=== PATIENT | male | born 1970 | race Caucasian/White ===

== ENCOUNTER → 2016-12-12 | Outpatient (CLI) | payer OTHER ==
[~2016-12-12] MED LIST: ALPR1TAB3 PO; CLON1TAB3 PO; FLUO40CA8 PO; LISI-725 PO; LSN20 PO; ZNT150 PO; ZNTT/150 PO
--- NOTE | 2016-12-12 09:12 | DIAGNOSTIC IMAGING REPORT ---
CHEST 2 VIEWS ROUTINE HISTORY: 46 years-old Male acute chest pain with anterior right-sided rib pain. COMPARISON: Chest radiograph 05/02/2014 TECHNIQUE: Frontal and lateral views of the chest FINDINGS: Cardiac silhouette is again upper limits of normal, unchanged. Mediastinal contours are within normal limits. There is no pneumothorax, pleural effusion or focal airspace consolidation. There is mild right hemidiaphragmatic elevation. Partial image fusion hardware of the lower cervical spine is noted with surgical clips near the right lung apex. The bones appear to be grossly intact. No acute displaced rib fracture is identified. There is mild convex left curvature of the lower thoracic spine. IMPRESSION: 1. No acute cardiopulmonary process. 2. No displaced rib fracture identified. The above report was generated using voice recognition software. It may contain grammatical, syntax or spelling errors. Electronically signed by: Sherif Serna M.D. 12/12/2016 9:11 AM Dictated Date/Time: 12/12/2016 9:09 AM
== END | disposition home or self-care (01) ==
LOC: C.RADBC 08:57
PROVIDERS: ATTEND Physician Assistant Medical
DX: R07.1 Chest pain on breathing (principal)

== ENCOUNTER 2020-09-19 00:03 | Observation (INO) ==
[2020-09-19] MEDS ORDERED: MoRPHine SULFATE 4 MG/ML 1 ML CARP\\VIAL IV STA (00:13)
[2020-09-19] MEDS ORDERED: SODIUM CHLORIDE 0.9% 1000ML 1,000 ML IV STA (00:13)
[2020-09-19] MEDS ORDERED: KETOROLAC TROMETHAMINE 15 MG/ML VIAL IV STA (00:13)
--- NOTE | 2020-09-19 00:32 | Emergency Department Note ---
History of Present Illness General Chief complaint: Flank Pain Stated complaint: PAIN AFTER KIDNEY SURGERY Time Seen by Provider: 09/19/20 00:12 History of Present Illness Maximum Pain Intensity: 10 This 50 yo presents to the ER complaining of flank pain who had lithotripsy done yesterday by Dr. Henao Location: Flank Quality: Severe Severity: Severe Duration: Today Timing: Started after lithotripsy Context: Pain got worse and patient came in Modifying factors: better with oxycodone; worse with activity Patient states he tried the oxycodone with minimal relief of symptoms. Patient complains of urinary symptoms. Patient denies chest pain, fever, chills, flulike illness. Home Medications Medication Instructions Recorded Confirmed Type clonazepam [Klonopin] 1 mg PO QAM 11/24/19 09/19/20 History fluoxetine [Prozac] 80 mg PO QAM 11/24/19 09/19/20 History albuterol sulfate 2 puff INHALATION Q4H PRN 05/16/20 09/19/20 History lisinopril 30 mg PO QAM 05/16/20 09/19/20 History oxycodone-acetaminophen 1 tab PO Q6H PRN #20 tab 09/18/20 09/19/20 Rx tamsulosin 0.4 mg PO DAILY #30 cap 09/18/20 09/19/20 Rx Allergies Allergy/AdvReac Type Severity Reaction Status Date / Time No Known Allergies Allergy Unknown Verified 09/18/20 07:28 Past Med/Surg History Medical History Anxiety Depression Diverticular disease Hearing deficit History of COVID-19 04/24/20 @ [facility]--fever, fatigue, loss of taste/smell, body aches--no issues now Hypercholesterolemia no meds Hypertension Kidney stones Obesity Osteoarthritis Sleep apnea cpap Surgical History History of anesthesia reaction difficulty voiding after a knee sx History of arthroscopy of right knee History of bilateral inguinal hernia repair History of colonoscopy History of elbow surgery right elbow tendon repair History of endoscopic sinus surgery History of fusion of cervical spine normal ROM History of lithotripsy History of open reduction and internal fixation (ORIF) procedure right ring finger---hardware removed History of umbilical hernia repair Status post medial meniscal repair right knee Family History Grandfather (Paternal) Family history of diabetes mellitus Cancer Grandmother (Paternal) Family history of diabetes mellitus Cerebral artery occlusion Uncle Cancer Father Hyperlipidemia Other No family history of adverse response to anesthesia Social History Smoking Status: Never smoker Tobacco Type: Smokeless Tobacco (Dip or Chew) Second Hand Exposure: No; Hx Alcohol Use: Yes Alcohol type: beer, wine and hard liquor Hx Substance Use: No Preferred Language: [place] Communication Ability: Effective Cardiovascular Lab Director Required: No Beliefs That Will Affect Care: None Current Living Situation: Spouse and Family Current Living Situation Comment: Lives with and 2 kids Feels Safe at Home: Yes Assistive Devices: CPAP Review of Systems A total of 10 systems reviewed and were otherwise negative Physical Exam Vital Signs Vital Signs - 24 hr 09/19/20 00:08 09/19/20 01:00 09/19/20 01:39 Temperature 37.2 C Temperature Source Temporal Artery Scan Pulse Rate 91 H 80 Pulse Rate [Apical] 80 80 Pulse Rhythm Regular Pulse Rhythm [Apical] Regular Regular Pulse Strength [Apical] Normal Normal Respiratory Rate 18 18 18 Respiratory Effort / Characteristics Non-Labored Non-Labored Respiratory Depth Normal Normal Respiratory Pattern Regular Regular Blood Pressure 178/82 H Blood Pressure [Right Arm] 173/89 H 163/96 H Blood Pressure Mean 114 Blood Pressure Mean [Right Arm] 117 118 Blood Pressure Position Sitting Blood Pressure Position [Right Arm] Sitting Lying Pulse Oximetry 93 98 95 Oxygen Delivery Method Room Air Room Air Room Air Sepsis Recent Fever Within 48 Hours No Sepsis New/Unexplained Change in Mental Status No Sepsis Action Taken by Nursing No Action Required VITALS: Vitals are noted on the nurse's note and reviewed by myself. Vital signs stable. GENERAL: Pleasant male who appears in pain, in no acute distress, n ondiaphoretic, well-developed well-nourished. SKIN: Capillary reflex less than 2 seconds. HEENT: Normocephalic. PERRLA. EOMI. Nares patent. Mucous membranes moist. Neck is supple without nuchal rigidity. HEART: Regular rate and rhythm LUNGS: Clear to auscultation bilaterally without wheezes, rales or rhonchi. No retractions or accessory muscle use. ABDOMEN: Positive bowel sounds x 4. Normal tympanic percussion. Soft, nontender, without masses or organomegaly. Kay sign negative. No guarding or rebound tenderness. Left CVA tenderness MUSCULOSKELETAL: No gross musculoskeletal defects. NEURO: Patient was alert and oriented to person place and time. No focal neurological deficits. Course Administered Medications Discontinued Medications Famotidine (Famotidine 20mg/5ml Iv Push) 20 mg IV ONE STA Stop: 09/19/20 00:38 Last Admin: 09/19/20 00:45 Dose: 20 mg Documented by: [id number] Sodium Chloride (Nss 1000ml) 1,000 mls @ 999 mls/hr IV .Q1H1M STA Stop: 09/19/20 01:13 Last Infusion: 09/19/20 01:37 Dose: 0 mls/hr Documented by: [id number] Admin: 09/19/20 00:45 Dose: 999 mls/hr Documented by: [id number] Promethazine HCl 25 mg/ Sodium (Chloride) 51 mls @ 204 mls/hr IV NOW STA Stop: 09/19/20 00:51 Last Admin: 09/19/20 00:59 Dose: Not Given Documented by: [id number] Acetaminophen (Ofirmev) 1,000 mg in 100 mls @ 400 mls/hr IV NOW STA Stop: 09/19/20 02:01 Last Infusion: 09/19/20 02:49 Dose: 0 mls/hr Documented by: [id number] Admin: 09/19/20 01:52 Dose: 400 mls/hr Documented by: [id number] Ketorolac Tromethamine (Ketorolac Tromethamine 15 Mg/Ml Vial) 10 mg IV NOW STA Stop: 09/19/20 00:14 Last Admin: 09/19/20 00:44 Dose: 10 mg Documented by: [id number] Morphine Sulfate (Morphine Sulfate 4 Mg/Ml 1 Ml Carp\Vial) 4 mg IV NOW STA Stop: 09/19/20 00:14 Last Admin: 09/19/20 00:45 Dose: 4 mg Documented by: [id number] Promethazine HCl (Promethazine 25 Mg/51 Ml Nss) Confirm Administered Dose 25 mg IV .STK-MED ONE Stop: 09/19/20 00:42 Last Admin: 09/19/20 00:45 Dose: 25 mg Documented by: [id number] Medical Decision Making Medical Records Attestation: I reviewed the patient's medical records. Home Medications Current Medication List: was personally reviewed by me Laboratory Data Attestation: I reviewed the patient's lab results. Result diagrams: 09/19/20 00:35 09/19/20 00:35 Lab Results 09/19/20 09/19/20 09/19/20 Range/Units 00:35 00:35 01:53 WBC 12.24 H (4.8-10.8) K/uL RBC 4.70 (4.7-6.1) M/uL Hgb 14.2 (14.0-18.0) g/dL Hct 40.3 L (42-52) % MCV 85.7 (80-100) fL MCH 30.2 (25-34) pg MCHC 35.2 (32-36) g/dL RDW Std Deviation 38.6 (36.4-46.3) fL RDW Coeff of Tushar 12.3 (11.5-14.5) % Plt Count 273 (130-400) K/uL MPV 8.7 (7.4-10.4) fL Immature Gran % (Auto) 0.8 % Neut % (Auto) 83.1 % Lymph % (Auto) 10.8 % [place] % (Auto) 5.2 % Eos % (Auto) 0.0 % Baso % (Auto) 0.1 % Neut # (Auto) 10.17 H (1.4-6.5) K/uL Lymph # (Auto) 1.32 (1.2-3.4) K/uL [place] # (Auto) 0.64 H (0.11-0.59) K/uL Eos # (Auto) 0.00 (0-0.5) K/uL Baso # (Auto) 0.01 (0-0.2) K/uL Immature Gran # (Auto) 0.10 H (0.00-0.02) K/uL Sodium 137 (136-145) mmol/L Potassium 3.8 (3.5-5.1) mmol/L Chloride 104 (98-107) mmol/L Carbon Dioxide 31 (21-32) mmol/L Anion Gap 2.0 L (3-11) BUN 14 (7-18) mg/dl Creatinine 0.95 (0.6-1.4) mg/dl Est Cr Clr Drug Dosing 134.4 ml/min Est GFR ( Amer) 106.2 ml/min Est GFR (Non-Af Amer) 91.7 ml/min BUN/Creatinine Ratio 14.9 (10-20) Glucose 179 H (70-99) mg/dl Calcium 8.7 (8.5-10.1) mg/dl Total Bilirubin 0.5 (0.2-1) mg/dl AST 35 (15-37) U/L ALT 115 H (12-78) U/L Alkaline Phosphatase 75 (45-117) U/L Total Protein 7.7 (6.4-8.2) gm/dl Albumin 3.7 (3.4-5.0) gm/dl Globulin 4.0 (2.5-4.0) gm/dl Albumin/Globulin Ratio 0.9 (0.9-2) Urine Color [place] Urine Appearance Cloudy A (Clear) Urine pH 5.0 (4.5-7.5) Ur Specific [place] 1.025 (1.000-1.030) Urine Protein 2+ H (Negative) Urine Glucose (UA) 1+ H (Negative) Urine Ketones Trace H (Negative) Urine Blood 3+ H (Negative) Urine Nitrite Negative (Negative) Urine Bilirubin Negative (Negative) Urine Urobilinogen Negative (Negative) Ur Leukocyte Esterase 1+ H (Negative) Urine WBC (Auto) 10-30 H (0-5) /hpf Urine RBC (Auto) >30 H (0-4) /hpf U Hyaline Cast (Auto) 5-10 H (0-5) /lpf U Epithel Cells (Auto) 10-20 H (0-5) /lpf Urine Bacteria (Auto) Negative (Negative) Urine Yeast Not Reportable COVID-19 Eval Order 09/19/20 Range/Units 02:37 WBC (4.8-10.8) K/uL RBC (4.7-6.1) M/uL Hgb (14.0-18.0) g/dL Hct (42-52) % MCV (80-100) fL MCH (25-34) pg MCHC (32-36) g/dL RDW Std Deviation (36.4-46.3) fL RDW Coeff of Tushar (11.5-14.5) % Plt Count (130-400) K/uL MPV (7.4-10.4) fL Immature Gran % (Auto) % Neut % (Auto) % Lymph % (Auto) % [place] % (Auto) % Eos % (Auto) % Baso % (Auto) % Neut # (Auto) (1.4-6.5) K/uL Lymph # (Auto) (1.2-3.4) K/uL [place] # (Auto) (0.11-0.59) K/uL Eos # (Auto) (0-0.5) K/uL Baso # (Auto) (0-0.2) K/uL Immature Gran # (Auto) (0.00-0.02) K/uL Sodium (136-145) mmol/L Potassium (3.5-5.1) mmol/L Chloride (98-107) mmol/L Carbon Dioxide (21-32) mmol/L Anion Gap (3-11) BUN (7-18) mg/dl Creatinine (0.6-1.4) mg/dl Est Cr Clr Drug Dosing ml/min Est GFR ( Amer) ml/min Est GFR (Non-Af Amer) ml/min BUN/Creatinine Ratio (10-20) Glucose (70-99) mg/dl Calcium (8.5-10.1) mg/dl Total Bilirubin (0.2-1) mg/dl AST (15-37) U/L ALT (12-78) U/L Alkaline Phosphatase (45-117) U/L Total Protein (6.4-8.2) gm/dl Albumin (3.4-5.0) gm/dl Globulin (2.5-4.0) gm/dl Albumin/Globulin Ratio (0.9-2) Urine Color Urine Appearance (Clear) Urine pH (4.5-7.5) Ur Specific [place] (1.000-1.030) Urine Protein (Negative) Urine Glucose (UA) (Negative) Urine Ketones (Negative) Urine Blood (Negative) Urine Nitrite (Negative) Urine Bilirubin (Negative) Urine Urobilinogen (Negative) Ur Leukocyte Esterase (Negative) Urine WBC (Auto) (0-5) /hpf Urine RBC (Auto) (0-4) /hpf U Hyaline Cast (Auto) (0-5) /lpf U Epithel Cells (Auto) (0-5) /lpf Urine Bacteria (Auto) (Negative) Urine Yeast COVID-19 Eval Order Covid19 at [facility] Imaging Data Attestation: I personally reviewed and interpreted this imaging study as follows: MDM Narrative Prior records/ancillary studies reviewed. Triage Nursing notes reviewed. Additional history obtained from nursing The patient's history was concerning for flank pain. Differential diagnosis: Etiologies such as renal colic, appendicitis, diverticulitis, mesenteric ischemia, aortic pathology, infections, inflammatory bowel disease, PUD, biliary pathology, UTI, as well as others were entertained. Physical examination findings: As above. ER treatment provided: Toradol, morphine, IV fluids, Flomax, Tylenol On reassessment the patient felt better. Diagnostic interpretation by me: The labs revealed mild leukocytosis. Urinalysis revealed hematuria. There was no sign of UTI. Imaging studies: CT ABDOMEN & PELVIS Without Contrast: Comparison made to CT abdomen pelvis without contrast 09/08/2020 Interval fragmentation of a stone within the inferior renal pelvis of the left kidney, compatible with history of lithotripsy. No hydronephrosis. Stable punctate nonobstructing right renal calculus. No obstructing ureteral stone. No acute findings in the abdomen or pelvis. Multiple incidental findings are grossly stable compared to the previous exam. Radiologist: Nancy Johnston M.D. Consultation: A consultation was placed with the hospitalist. The case was discussed and diagnostics were reviewed. The patient was evaluated in the ER for further treatment. It appears that the patient has isolated renal colic from a left sided stone. Patient still moderate amount of pain. He is requesting admission. Medicine was consulted. By the evaluation outlined above emergent etiologies such as appendicitis, diverticulitis, mesenteric ischemia, aortic pathology, inflammatory bowel disease, PUD, biliary pathology, as well as others were deemed relatively unlikely. The pt informed about the findings as listed above. All questions were answered and pleased with the treatment. The chart was completed utilizing [employer] voice recognition software. Grammatical errors, random word insertions, pronoun errors, and incomplete sentences are an occassional consequence of this system due to software limitations, ambient noise, and hardware issues. Any formal questions or concerns about the content, text, or information contained within the body of this dictation should be directly addressed to the physician assistant cross country coach for clarification. Impression & Plan Left renal stone, Intractable back pain Discharge Plan Visit Data Chief Complaint: Flank Pain Stated Complaint: PAIN AFTER KIDNEY SURGERY ED Provider: Toney Cheng ED Midlevel Provider: Radha Wright Discharge Problem: Left renal stone, Intractable back pain Patient Disposition: Being Evaluated by Hospitalist Condition: Good Forms Stand Alone Forms: My [employer] Prescriptions Prescriptions: No Action lisinopril 30 mg tablet 30 mg PO QAM RF: 0 albuterol sulfate 90 mcg/actuation HFA aerosol inhaler 2 puff INHALATION Q4H PRN (Reason: Shortness Of Breath Or Wheezing) RF: 0 fluoxetine [Prozac] 40 mg capsule 80 mg PO QAM RF: 0 clonazepam [Klonopin] 1 mg tablet 1 mg PO QAM RF: 0 oxycodone-acetaminophen 7.5-325 mg tablet 1 tab PO Q6H PRN (Reason: pain) Qty: 20 RF: 0 tamsulosin 0.4 mg capsule 0.4 mg PO DAILY Qty: 30 RF: 0 Referrals Referrals: Jackie Nunez CRNP [Primary Care Provider] -
[2020-09-19] MEDS ORDERED: FAMOTIDINE 20MG/5ML IV PUSH IV STA (00:37)
[2020-09-19] MEDS ORDERED: PROMETHAZINE HCL 25 MG in SODIUM CHLORIDE 0.9% 50 ML IV STA (00:37)
[2020-09-19] MEDS ORDERED: PROMETHAZINE 25 MG/51 ML NSS IV ONE (00:41)
[2020-09-19 00:47] LABS: Basophils # (auto) 0.01 K/uL (0-0.2); Basophils % (auto) 0.1 %; Hematocrit (blood only) 40.3 % (42-52); Hemoglobin 14.2 g/dL (14.0-18.0); Immature Granulocytes % (auto) 0.8 %; Lymphocytes # (auto) 1.32 K/uL (1.2-3.4); Lymphocytes % (auto) 10.8 %; Mean Corpuscular Hemoglobin 30.2 pg (25-34); Mean Corpuscular Hgb Conc 35.2 g/dL (32-36); Mean Corpuscular Volume 85.7 fL (80-100); Mean Platelet Volume 8.7 fL (7.4-10.4); Monocytes # (auto) 0.64 K/uL (0.11-0.59); Monocytes % (auto) 5.2 %; Neutrophils # (auto) 10.17 K/uL (1.4-6.5); Neutrophils % (auto) 83.1 %; Platelet Count 273 K/uL (130-400); RDW Coefficient of Variation 12.3 % (11.5-14.5); RDW Standard Deviation 38.6 fL (36.4-46.3); White Blood Count 12.24 K/uL (4.8-10.8)
[2020-09-19 01:07] LABS: Albumin Level 3.7 gm/dl (3.4-5.0); BUN Creatinine Ratio 14.9 (10-20); Calcium 8.7 mg/dl (8.5-10.1); Creatinine Clr Calc Pharmacy 134.4 ml/min; Est GFR (African American) 106.2 ml/min; Est GFR (Non-African American) 91.7 ml/min; Potassium 3.8 mmol/L (3.5-5.1)
[2020-09-19 01:08] LABS: Albumin Globulin Ratio 0.9 (0.9-2); Bilirubin,Total 0.5 mg/dl (0.2-1); Total Protein 7.7 gm/dl (6.4-8.2)
[2020-09-19] MEDS ORDERED: ACETAMINOPHEN 1,000 MG/100 ML VIAL IV STA (01:47)
[2020-09-19 02:05] LABS: Appearance Urine Cloudy (Clear); Bacteria Urine Automated Negative (Negative); Bilirubin Urine Negative (Negative); Blood Urine 3+ (Negative); Color Urine Orange; Glucose Urine UA 1+ (Negative); Ketones Urine Trace (Negative); Leukocyte Esterase Urine 1+ (Negative); Nitrite Urine Negative (Negative); Protein Urine 2+ (Negative); Specific Gravity Urine 1.025 (1.000-1.030); Urobilinogen Urine Negative (Negative)
[2020-09-19] MEDS ORDERED: TAMSULOSIN HCL 0.4 MG CAP PO ONE (02:22)
[2020-09-19 02:32] LABS: RBC Urine Automated >30 /hpf (0-4)
--- NOTE | 2020-09-19 04:51 | History & Physical Report ---
Date of Service September 19, 2020 Assessment & Plan (1) Left renal stone: Left renal stone/status post lithotripsy earlier in the day- Intractable back pain Admit for pain control N.p.o. except meds Tamsulosin 0.4 mg p.o. daily NSS + KCl 20 mEq at 100 mils per hour Follow urine culture and sensitivity Ceftriaxone 2 g IV daily Zofran 4 mg IV every 6 hours as needed Famotidine 20 mg IV every 12 hours Dilaudid 0.25 mg IV every 3 hours as needed moderate pain Dilaudid 0.5 mg IV every 3 hours as needed severe pain Consult urology Present on Admission?: Yes (2) History of lithotripsy: See above Present on Admission?: Yes (3) Intractable back pain: See above Present on Admission?: Yes (4) Hypertension: Hold lisinopril Present on Admission?: Yes (5) Generalized anxiety disorder: Generalized anxiety disorder/depression- continue clonazepam and fluoxetine Present on Admission?: Yes (6) Depressive disorder: See above Present on Admission?: Yes History of Present Illness Chief Complaint: Patient presents to the emergency department with severe left- sided flank pain, that occurred after lithotripsy earlier in the day, unrelieved by pain medications Primary Care Provider: SAUNDRA Avelar The patient is a 50-year-old male with a past medical history including left renal stone, obesity, umbilical hernia, tobacco use disorder, cervical spine stenosis, panic disorder without agoraphobia, metabolic syndrome, long QT syndrome, generalized anxiety disorder, GERD, dyslipidemia, hypertension, morbid obesity and hypercholesterolemia. Patient underwent lithotripsy earlier in the day for left renal stone, and presented to the emergency department as instructed, if pain became intolerable post procedure. Allergies Allergy/AdvReac Type Severity Reaction Status Date / Time No Known Allergies Allergy Unknown Verified 09/18/20 07:28 Home Medications Medication Instructions Recorded Confirmed Type clonazepam [Klonopin] 1 mg PO QAM 11/24/19 09/19/20 History fluoxetine [Prozac] 80 mg PO QAM 11/24/19 09/19/20 History albuterol sulfate 2 puff INHALATION Q4H PRN 05/16/20 09/19/20 History lisinopril 30 mg PO QAM 05/16/20 09/19/20 History oxycodone-acetaminophen 1 tab PO Q6H PRN #20 tab 09/18/20 09/19/20 Rx tamsulosin 0.4 mg PO DAILY #30 cap 09/18/20 09/19/20 Rx Past Med/Surg History Medical History Anxiety Depression Diverticular disease Hearing deficit History of COVID-19 04/24/20 @ [facility]--fever, fatigue, loss of taste/smell, body aches--no issues now Hypercholesterolemia no meds Hypertension Kidney stones Obesity Osteoarthritis Sleep apnea cpap Surgical History History of anesthesia reaction difficulty voiding after a knee sx History of arthroscopy of right knee History of bilateral inguinal hernia repair History of colonoscopy History of elbow surgery right elbow tendon repair History of endoscopic sinus surgery History of fusion of cervical spine normal ROM History of lithotripsy History of open reduction and internal fixation (ORIF) procedure right ring finger---hardware removed History of umbilical hernia repair Status post medial meniscal repair right knee Family History Grandfather (Paternal) Family history of diabetes mellitus Cancer Grandmother (Paternal) Family history of diabetes mellitus Cerebral artery occlusion Uncle Cancer Father Hyperlipidemia Other No family history of adverse response to anesthesia Social History Smoking Status: Never smoker Tobacco Type: Smokeless Tobacco (Dip or Chew) Second Hand Exposure: No; Hx Alcohol Use: Yes Alcohol type: beer, wine and hard liquor Hx Substance Use: No Preferred Language: Bahraini Communication Ability: Effective Saw Man Required: No Beliefs That Will Affect Care: None Current Living Situation: Spouse and Family Current Living Situation Comment: Lives with and 2 kids Feels Safe at Home: Yes Assistive Devices: CPAP Review of Systems Review of Systems: The patient denies chest pain, palpitations, shortness of breath, dyspnea on exertion, cough, lower extremity swelling, sore throat, chills, sweats, weight change, fatigue, nausea, vomiting, diarrhea , constipation, pelvic pain, blood in urine or stool, dysuria, urinary frequency or urgency, lightheadedness, dizziness, headache, memory loss, loss of consciousness, rash, abnormal bruising or bleeding, imbalance, focal or generalized weakness, numbness or tingling in arms or legs, generalized arthralgias or myalgias, neck pain, or night sweats. The review of systems is otherwise negative other than for that already noted above, and at least 10 systems have been reviewed. Physical Exam Physical Exam: The patient is awake, alert and oriented 3, well developed and well nourished, normocephalic and atraumatic, lying in bed and in no acute distress. HEENT--PERRL, EOMI, mucous membranes and oropharynx normal. Neck--supple. No JVD. No bruits. Thyroid normal, trachea midline, no adenopathy. Heart--normal S1 and S2. No murmurs, rubs or gallops. Lungs--clear bilaterally, no respiratory distress, no accessory muscle use. Abdomen--normal bowel sounds and soft. Nontender. Nondistended. Morbidly obese Extremities--no cyanosis or clubbing. No edema. Dermatologic--normal skin turgor, normal color, no abnormal lymph nodes, no rash. Neurologic--cranial nerves II through XII grossly intact. Rheumatologic--normal range of motion. Psychiatric--normal affect. Results & Data Results & Data ([facility]) Vital Signs (Past 12 Hours) Vital Signs Temp Pulse Pulse Resp BP BP Pulse Ox 09/19/20 03:34 72 20 168/109 H 94 09/19/20 01:39 80 18 163/96 H 95 09/19/20 01:00 80 80 18 173/89 H 98 09/19/20 00:08 99.0 F 91 H 18 178/82 H 93 Laboratory Results Laboratory Results WBC 12.24 K/uL (4.8-10.8) H 09/19/20 00:35 RBC 4.70 M/uL (4.7-6.1) 09/19/20 00:35 Hgb 14.2 g/dL (14.0-18.0) 09/19/20 00:35 Hct 40.3 % (42-52) L 09/19/20 00:35 MCV 85.7 fL (80-100) 09/19/20 00:35 MCH 30.2 pg (25-34) 09/19/20 00:35 MCHC 35.2 g/dL (32-36) 09/19/20 00:35 RDW Std Deviation 38.6 fL (36.4-46.3) 09/19/20 00:35 RDW Coeff of Tushar 12.3 % (11.5-14.5) 09/19/20 00:35 Plt Count 273 K/uL (130-400) 09/19/20 00:35 MPV 8.7 fL (7.4-10.4) 09/19/20 00:35 Immature Gran % (Auto) 0.8 % 09/19/20 00:35 Neut % (Auto) 83.1 % 09/19/20 00:35 Lymph % (Auto) 10.8 % 09/19/20 00:35 [place] % (Auto) 5.2 % 09/19/20 00:35 Eos % (Auto) 0.0 % 09/19/20 00:35 Baso % (Auto) 0.1 % 09/19/20 00:35 Neut # (Auto) 10.17 K/uL (1.4-6.5) H 09/19/20 00:35 Lymph # (Auto) 1.32 K/uL (1.2-3.4) 09/19/20 00:35 [place] # (Auto) 0.64 K/uL (0.11-0.59) H 09/19/20 00:35 Eos # (Auto) 0.00 K/uL (0-0.5) 09/19/20 00:35 Baso # (Auto) 0.01 K/uL (0-0.2) 09/19/20 00:35 Immature Gran # (Auto) 0.10 K/uL (0.00-0.02) H 09/19/20 00:35 Sodium 137 mmol/L (136-145) 09/19/20 00:35 Potassium 3.8 mmol/L (3.5-5.1) 09/19/20 00:35 Chloride 104 mmol/L (98-107) 09/19/20 00:35 Carbon Dioxide 31 mmol/L (21-32) 09/19/20 00:35 Anion Gap 2.0 (3-11) L 09/19/20 00:35 BUN 14 mg/dl (7-18) 09/19/20 00:35 Creatinine 0.95 mg/dl (0.6-1.4) 09/19/20 00:35 Est Cr Clr Drug Dosing 134.4 ml/min 09/19/20 00:35 Est GFR ( Amer) 106.2 ml/min 09/19/20 00:35 Est GFR (Non-Af Amer) 91.7 ml/min 09/19/20 00:35 BUN/Creatinine Ratio 14.9 (10-20) 09/19/20 00:35 Glucose 179 mg/dl (70-99) H 09/19/20 00:35 Calcium 8.7 mg/dl (8.5-10.1) 09/19/20 00:35 Total Bilirubin 0.5 mg/dl (0.2-1) 09/19/20 00:35 AST 35 U/L (15-37) 09/19/20 00:35 ALT 115 U/L (12-78) H 09/19/20 00:35 Alkaline Phosphatase 75 U/L (45-117) 09/19/20 00:35 Total Protein 7.7 gm/dl (6.4-8.2) 09/19/20 00:35 Albumin 3.7 gm/dl (3.4-5.0) 09/19/20 00:35 Globulin 4.0 gm/dl (2.5-4.0) 09/19/20 00:35 Albumin/Globulin Ratio 0.9 (0.9-2) 09/19/20 00:35 Urine Color Martin 09/19/20 01:53 Urine Appearance Cloudy (Clear) A 09/19/20 01:53 Urine pH 5.0 (4.5-7.5) 09/19/20 01:53 Ur Specific [place] 1.025 (1.000-1.030) 09/19/20 01:53 Urine Protein 2+ (Negative) H 09/19/20 01:53 Urine Glucose (UA) 1+ (Negative) H 09/19/20 01:53 Urine Ketones Trace (Negative) H 09/19/20 01:53 Urine Blood 3+ (Negative) H 09/19/20 01:53 Urine Nitrite Negative (Negative) 09/19/20 01:53 Urine Bilirubin Negative (Negative) 09/19/20 01:53 Urine Urobilinogen Negative (Negative) 09/19/20 01:53 Ur Leukocyte Esterase 1+ (Negative) H 09/19/20 01:53 Urine WBC (Auto) 10-30 /hpf (0-5) H 09/19/20 01:53 Urine RBC (Auto) >30 /hpf (0-4) H 09/19/20 01:53 U Hyaline Cast (Auto) 5-10 /lpf (0-5) H 09/19/20 01:53 U Epithel Cells (Auto) 10-20 /lpf (0-5) H 09/19/20 01:53 Urine Bacteria (Auto) Negative (Negative) 09/19/20 01:53 Urine Yeast Not Reportable 09/19/20 01:53 COVID-19 Eval Order Covid19 at [facility] [place] 09/19/20 02:37 SARS-CoV-2 (PCR) NEGATIVE (Negative) 09/19/20 02:37 Diagnostic Findings [facility] Patient: UNA KRAMER (Male) : 66 Status: ER Date: 09/19/20 01:15 Room #: History: LEFT flank pain, lithotripsy today Slices: [phone] Priors: Tech: Panchito Lubin @ [id number] Exams: CT ABDOMEN & PELVIS Without Contrast Contrast: Accession Numbers: [id number] Preliminary Findings Only See Final Report For Complete Findings CT ABDOMEN & PELVIS Without Contrast: Comparison made to CT abdomen pelvis without contrast 09/08/2020 Interval fragmentation of a stone within the inferior renal pelvis of the left kidney, compatible with history of lithotripsy. No hydronephrosis. Stable punctate nonobstructing right renal calculus. No obstructing ureteral stone. No acute findings in the abdomen or pelvis. Multiple incidental findings are grossly stable compared to the previous exam. Radiologist: Nnacy Johnston M.D. Study ready at 01:19 and initial results transmitted at 01:51 *This report constitutes a preliminary interpretation only. Non-acute findings felt to be unrelated to the clinical presentation may not be discussed in this report. The study will be interpreted and a final report will be generated by the local Radiologist the following shift. To reach the hospital radiology department call [phone]. If a discrepancy is found between the preliminary and final interpretations of this study, please notify us via our Client Portal at [email or web address] under QA [email or web address].You can also fax this report with a description of the discrepancy, or include the final report, to our daytime fax number [phone].If faxing, please indicate the severity of discrepancy using one of the following categories: [ ] 1 - Agree/Informational [ ] 2 - Unlikely to Affect Management [ ] 3 - Possible Eventual Change of Management [ ] 4 - Probable Immediate Change of Management For all other patient related information, please fax us at [phone]. [id number] Code Status & VTE Plan Code Status Full code VTE Prophylaxis Plan VTE Prophylaxis will be ordered: Yes PG Care Time/CCT Total # of Minutes Spent Total Time Spent with Patient: Total time spent is greater than 50% in coordination of care (as documented) at patient's floor/unit and/or counseling patient: Coding Level of Care Code 90542 OBS Care - Level 3 Diagnoses Left renal stone N20.0 History of lithotripsy Z98.890 Intractable back pain M54.9 Hypertension I10 Generalized anxiety disorder F41.1 Depressive disorder F32.9
[2020-09-19] MEDS: HYDROmorphone INJ 0.5 MG/0.5 ML SYR IV PRN ×3 (05:15→12:25)
[2020-09-19] MEDS ORDERED: GLUCOSE 10 TABS/TUBE PO PRN (05:26)
[2020-09-19] MEDS ORDERED: DEXTROSE 50% 50 ML SYRINGE IV PRN (05:26)
[2020-09-19] MEDS ORDERED: GLUCOSE 40% GEL 15 GM TUBE PO PRN (05:26)
[2020-09-19] MEDS ORDERED: oxyCODONE/APAP 7.5/325MG TAB PO PRN (05:26)
[2020-09-19] MEDS ORDERED: ONDANSETRON INJ 2 MG/ML 2 ML VIAL IV PRN (05:26)
[2020-09-19] MEDS ORDERED: CARBOHYDRATES FOR HYPOGLYCEMIA PO PRN (05:26)
[2020-09-19] MEDS ORDERED: GLUCAGON FOR INJ 1 MG VIAL SQ PRN (05:26)
[2020-09-19] MEDS ORDERED: cefTRIAXone SODIUM 2,000 MG in DEXTROSE 5% 50 ML IV SCH (06:00)
[2020-09-19] MEDS ORDERED: Nursing to Pharmacy Communication SCH (07:00)
[2020-09-19] MEDS: INSULIN ASPART 100 UNITS/ML 3 ML PEN SC SCH ×2 (07:04→12:07)
[2020-09-19] MEDS ORDERED: INSULIN ASPART 100 UNITS/ML 3 ML PEN SC SCH (07:30)
--- NOTE | 2020-09-19 08:19 | CT Scan Report ---
CT OF THE ABDOMEN AND PELVIS WITHOUT CONTRAST CLINICAL HISTORY: flank pain, lithotripsy today COMPARISON STUDY: CT of the abdomen and pelvis September 08, 2020. KUB September 18, 2020. TECHNIQUE: Axial images of the abdomen and pelvis were obtained without IV contrast. Images were revi ewed in the axial, sagittal, and coronal planes. Automated exposure control was utilized for the arabella dy. A dose lowering technique was utilized adhering to the principles of ALARA. FINDINGS: A 9 mm left lower lobe pulmonary nodule is unchanged since CT of February 22, 2019. This has increased in size from earlier exams. This is indeterminate. Hepatic steatosis is noted. A few lesio ns within segment 6 of the liver are hyperdense when compared to the background liver. These measure up to 3.8 cm. A 1 cm exophytic nodule on the right hepatic lobe is unchanged from earlier exams. This is benign. There is no evidence for a bowel obstruction. Colonic diverticulosis is noted without harman dence for acute diverticulitis. Interval fragmentation of the left renal pelvis calculus is noted. Nu merous small fragments measure up to approximately 3 mm. There are no ureteral calculi. There is no h ydronephrosis. There is trace left perinephric fluid. No acute fracture or suspicious lesion is ident ified within the visualized skeletal structures. IMPRESSION: 1. Interval fragmentation of the left renal pelvis calculus with numerous small fragments, as describ ed above. No ureteral calculi. No hydronephrosis. Trace left perinephric fluid. 2. Hepatic steatosis. Several right hepatic lobe lesions, as described above. These favor hemangiomas however are indeterminate. Nonemergent liver protocol MRI is recommended for confirmation. 3. 9 mm left lower lobe pulmonary nodule, unchanged since prior exam. Increased in size from earlier studies. This nodule can be assessed on follow-up studies. ACT 112: Negative or not required by law. Electronically signed by: Donte Silverio M.D. 09/19/2020 8:17 AM
--- NOTE | 2020-09-19 08:51 | Urology Consultation ---
Date of Consultation September 19, 2020 Assessment & Plan (1) Left renal stone: s/p ESWL. Per CT scan, surgery was successful. No obstructing stones. Adequate fragmentation of stones. Renal fx normal. No need for surgical intervention at this time. (2) Intractable back pain: Continue to manage pain post-operatively. Overall appears improved since admission. OK to discharge home on oral regimen. Follow up with Dr. Henao in 2 weeks with KUB. History of Present Illness Attending Physician: Micah Kyle DO 50 y/o male with a past med hx of kidney stones, hernia, smoking, panic d/o, obesity, GERD, HTN, and dyslipidemia. The patient underwent left ESWL yesterday with Dr. Henao for a 1.2mm x 6mm kidney stone. He felt fine initially, but shortly after arriving home he gane to have significant flank pain. It became intolerable and he returned to the ED for further evaluation. A CT scan was performed which showed interval fragmentation of the kidney stone. No hydronephrosis. No obstructing ureteral stones. No hematoma. His labs were stable with a Cr of 0.89 and WBC of 12. No fevers. No chills. No nausea. No vomitting. Intermit hematuria. No dys uria. Allergies Allergy/AdvReac Type Severity Reaction Status Date / Time No Known Allergies Allergy Unknown Verified 09/18/20 07:28 Home Medications Medication Instructions Recorded Confirmed Type clonazepam [Klonopin] 1 mg PO QAM 11/24/19 09/19/20 History fluoxetine [Prozac] 80 mg PO QAM 11/24/19 09/19/20 History albuterol sulfate 2 puff INHALATION Q4H PRN 05/16/20 09/19/20 History lisinopril 30 mg PO QAM 05/16/20 09/19/20 History oxycodone-acetaminophen 1 tab PO Q6H PRN #20 tab 09/18/20 09/19/20 Rx tamsulosin 0.4 mg PO DAILY #30 cap 09/18/20 09/19/20 Rx Patient History Medical History (Updated 09/19/20 @ 01:57 by Radha Wright PA-C) Anxiety Depression Diverticular disease Hearing deficit History of COVID-19 04/24/20 @ [facility]--fever, fatigue, loss of taste/smell, body aches--no issues now Hypercholesterolemia no meds Hypertension Kidney stones Obesity Osteoarthritis Sleep apnea cpap Surgical History (Updated 09/19/20 @ 04:47 by Kel Munson MD) History of anesthesia reaction difficulty voiding after a knee sx History of arthroscopy of right knee History of bilateral inguinal hernia repair History of colonoscopy History of elbow surgery right elbow tendon repair History of endoscopic sinus surgery History of fusion of cervical spine normal ROM History of lithotripsy History of open reduction and internal fixation (ORIF) procedure right ring finger---hardware removed History of umbilical hernia repair Status post medial meniscal repair right knee Family History Grandfather (Paternal) Family history of diabetes mellitus Cancer Grandmother (Paternal) Family history of diabetes mellitus Cerebral artery occlusion Uncle Cancer Father Hyperlipidemia Other No family history of adverse response to anesthesia Social History Smoking Status: Never smoker Tobacco Type: Smokeless Tobacco (Dip or Chew) Second Hand Exposure: No; Hx Alcohol Use: Yes Alcohol type: beer, wine and hard liquor Hx Substance Use: No Preferred Language: Chadian Communication Ability: Effective Tip Puncher Required: No Beliefs That Will Affect Care: None Current Living Situation: Spouse Current Living Situation Comment: Lives with and 2 kids Feels Safe at Home: Yes Assistive Devices: Glasses Review of Systems Review of Systems: All systems reviewed & are unremarkable except as noted in HPI & below Physical Exam Constitutional: WD/WN, vitals as above ENMT: external ear and nose normal, oropharynx normal Respiratory: normal respiratory effort, lungs clear to auscultation Cardiovascular: RRR, no murmur, no edema Gastrointestinal (Abdomen): normal bowel sounds, soft, nontender, no hepatosplenomegaly Musculoskeletal: Head/Neck/Chest: + localized rib tenderness Skin: no rashes, warm and dry Psychiatric: A+Ox3, euthymic affect Genitourinary: no testicular masses, no penis abnormality Lymphatic: no cervical or axillary lymphadenopathy Results & Data ([facility]) Vital Signs (Past 12 Hours) Vital Signs Temp Pulse Pulse Pulse Resp BP BP 09/19/20 08:04 37.0 C 09/19/20 07:13 37.7 C H 74 18 150/80 H 05/29/21 05:30 36.6 C 69 18 173/91 H 09/19/20 04:57 68 18 172/82 H 09/19/20 03:34 72 20 168/109 H 09/19/20 01:39 80 18 163/96 H 09/19/20 01:00 80 80 18 173/89 H 09/19/20 00:08 37.2 C 91 H 18 178/82 H Pulse Ox 09/19/20 08:04 09/19/20 07:13 94 09/19/20 05:30 96 09/19/20 04:57 96 09/19/20 03:34 94 09/19/20 01:39 95 09/19/20 01:00 98 09/19/20 00:08 93 PG Care Time/CCT Total # of Minutes Spent Total Time Spent with Patient: Total time spent is greater than 50% in coordination of care (as documented) at patient's floor/unit and/or counseling patient: 30 Coding Level of Care Code 21598 Inpt Consult Level 3 Diagnoses Left renal stone N20.0 Intractable back pain M54.9
[2020-09-19] MEDS ORDERED: FLUoxetine HCL 20 MG CAP PO SCH (09:00)
[2020-09-19] MEDS ORDERED: clonazePAM 1 MG TAB PO SCH (09:00)
[2020-09-19] MEDS ORDERED: TAMSULOSIN HCL 0.4 MG CAP PO SCH (09:00)
[2020-09-19] MEDS ORDERED: SODIUM CHLORIDE 0.45 % 1,000 ML IV SCH (09:45)
--- NOTE | 2020-09-19 17:14 | Hospitalist Progress Note ---
Date of Service September 19, 2020 Assessment & Plan (1) History of lithotripsy: Severe Flank Pain Status post lithotripsy, with intractable flank pain, patient in severe pain requiring IV dilaudid every 1-2 hours Does not remember seeing or speaking with urology but based on note appears no further intervention planned, reached out to urology foundation maker and waiting to hear back at this time Will resume diet and start PO pain control with oxycodone and acetaminophen. With IV dilaudid for breakthrough pain IV zofran as needed for nausea Continuing to strain urine Continuing IV fluid and tamsulosin daily HTN Resuming PO lisinopril Anxiety REsuming PO fluoxetine DVT PPx: Will start lovenox F/E/N: 1/2 NSS 125 mls/hour, regular diet Dispo: WIll treat pain and nausea suppotively and await stone passage or symptom resolution Full Code (2) Left renal stone: (3) Intractable back pain: (4) Left nephrolithiasis: (5) Obesity: Admission and Anticipated Discharge Date Admission Date: September 19, 2020 Supervising Physician Co-Signing Physician Notes I personally examined the patient and verified all slater points of history and exam, discussed case, and agree with decision making with Dr Yan. this AM still a good deal of pain. vitals noted nad heent nc at mmm breathing unlabored no accessory muscles good effort skin no rashes no pallor or icterus Ureterolithiasispain control, supportive care. Anticipate expectant management Subjective See today's H and P Review of Systems Review of Systems: See today's H and P Physical Exam Physical Exam: See today's H and P Results & Data Results & Data ([facility]) Vital Signs (Past 12 Hours) Vital Signs Temp Pulse Resp BP Pulse Ox 09/19/20 16:28 36.2 C L 60 16 148/88 H 96 09/19/20 08:04 37.0 C 09/19/20 07:13 37.7 C H 74 18 150/80 H 94 09/19/20 05:30 36.6 C 69 18 173/91 H 96 Resident Activity Tracking Resident Involvement: Resident Care Provided Care Provided: Adult Hospital Medicine
--- NOTE | 2020-09-19 17:39 | Discharge Summary ---
Date of Service September 19, 2020 Admission HPI Per Admitting Provider The patient is a 50-year-old male with a past medical history including left renal stone, obesity, umbilical hernia, tobacco use disorder, cervical spine stenosis, panic disorder without agoraphobia, metabolic syndrome, long QT syndrome, generalized anxiety disorder, GERD, dyslipidemia, hypertension, morbid obesity and hypercholesterolemia. Patient underwent lithotripsy earlier in the day for left renal stone, and presented to the emergency department as instructed, if pain became intolerable post procedure. Admission Exam Per Admitting Provider The patient is awake, alert and oriented 3, well developed and well nourished, normocephalic and atraumatic, lying in bed and in no acute distress. HEENT--PERRL, EOMI, mucous membranes and oropharynx normal. Neck--supple. No JVD. No bruits. Thyroid normal, trachea midline, no adenopathy. Heart--normal S1 and S2. No murmurs, rubs or gallops. Lungs--clear bilaterally, no respiratory distress, no accessory muscle use. Abdomen--normal bowel sounds and soft. Nontender. Nondistended. Morbidly obese Extremities--no cyanosis or clubbing. No edema. Dermatologic--normal skin turgor, normal color, no abnormal lymph nodes, no rash. Neurologic--cranial nerves II through XII grossly intact. Rheumatologic--normal range of motion. Psychiatric--normal affect. Principal Diagnosis Renal Colic Discharge Exam Constitutional WD/WN, vitals as above ENMT external ear and nose normal, oropharynx normal Respiratory normal respiratory effort, lungs clear to auscultation Cardiovascular RRR, no murmur, no edema Gastrointestinal (Abdomen) normal bowel sounds, soft, nontender, no hepatosplenomegaly Musculoskeletal Head/Neck/Chest: + localized rib tenderness Skin no rashes, warm and dry Psychiatric A+Ox3, euthymic affect Genitourinary no testicular masses, no penis abnormality Lymphatic no cervical or axillary lymphadenopathy Discharge Data Allergies Allergy/AdvReac Type Severity Reaction Status Date / Time No Known Allergies Allergy Unknown Verified 09/18/20 07:28 Consultations 09/19/20 02:30 ED Decision to Admit Stat 09/19/20 05:26 Consult Urology Routine Ordered Studies 09/19/20 00:13 CT abd pelvis wo con Urgent Hospital Course (1) History of lithotripsy: Severe Flank Pain Status post lithotripsy, with intractable flank pain, patient initially in severe pain requiring IV dilaudid every 1-2 hours this improved markedly around lunchtime and has not had any IV pain medications since noon Per note Urology without plan for further interventions at this time. Will stop ceftriaxone as no evidence of infection Will resume diet and start PO pain control with oxycodone and acetaminophen. Encouraging good PO fluid consumption and tamsulosin daily HTN Resuming PO lisinopril Anxiety REsuming PO fluoxetine will need to make/keep PCP and urology follow up (2) Left renal stone: (3) Intractable back pain: (4) Obesity: Total Time Total Time Spent Total Time Spent (In Minutes): <30 Discharge Plan Discharge Items Patient Disposition: Home - Self-Care Reason For Visit: RENAL COLIC Discharge Diagnosis: REnal Colic s/p lithotripsy Condition on Discharge: Good Activity: Per Instructions section Non-emergency contact: Urologist Call non-emergency contact if: you have any medication questions, your symptoms worsen and your rectal temperature is above 100.4 Follow-up/Referrals: Jackie Nunez CRNP [Primary Care Provider] - Diet: Regular Addtl Attending Provider Instructions: Mr. Mckee it has been our pleasure caring for you for your renal colic pain after your lithotripsy. It appears that the lithotripsy was successful and you will be able to pass the fragments on your own. Now that your pain is better controlled we can send you home. I would recommend continuing to take your flomax (tamsulosin) and drinking plenty of water. Should you have any worsening pain fevers, chills, or other concerning symptoms please do not hesitate to return to medical care. We wish you all the best moving forward! Pending Studies at Discharge: No Stand-Alone Forms: My [facility] zLense, Smoking Cessation Medications and DC Order Prescriptions: Continued lisinopril 30 mg tablet 30 mg PO QAM RF: 0 albuterol sulfate 90 mcg/actuation HFA aerosol inhaler 2 puff INHALATION Q4H PRN (Reason: Shortness Of Breath Or Wheezing) RF: 0 fluoxetine [Prozac] 40 mg capsule 80 mg PO QAM RF: 0 clonazepam [Klonopin] 1 mg tablet 1 mg PO QAM RF: 0 oxycodone-acetaminophen 7.5-325 mg tablet 1 tab PO Q6H PRN (Reason: pain) Qty: 20 RF: 0 tamsulosin 0.4 mg capsule 0.4 mg PO DAILY Qty: 30 RF: 0 Discharge Orders: Discharge Order (Routine); Ordered 09/19/20 Ordered By: Vinod Yan Admission Data Admit Date/Time: 09/19/20 03:09 Attending Provider: Micah Kyle Admit Provider: Kel Munson Primary Care Provider: Jackie Nunez Other Providers: Kel Munson ; Omer Henao Other Interventions: Discharge Summary Assessment (RN) Last Done: 09/19/20 17:46 Supervising Physician Co-Signing Physician Notes I personally examined the patient and verified all slater points of history and exam, discussed case, and agree with decision making with Dr Yan Resident Activity Tracking Resident Involvement: Resident Care Provided Care Provided: Adult Hospital Medicine
--- NOTE | 2020-09-19 18:15 | Billing Data ---
Date of Service September 19, 2020 Coding Level of Care Code 76543 OBS Care - Discharge
== END 2020-09-19 18:40 | disposition home or self-care (01) ==
LOC: 3W 00:03 → ED 00:03 → SUATTDRO 03:09 → 3W 05:19

== ENCOUNTER 2022-03-11 08:19 | Observation (INO) ==
[2022-03-11] MEDS ORDERED: ACETAMINOPHEN 500 MG TAB PO STA (08:36)
[2022-03-11] MEDS ORDERED: SODIUM CHLORIDE 0.9% 500 ML IV STA (08:36)
[2022-03-11] MEDS ORDERED: NITROGLYCERIN 2% OINTMENT 30GM TUBE EXT ONE (08:36)
[2022-03-11] MEDS ORDERED: ONDANSETRON INJ 2 MG/ML 2 ML VIAL IV STA (08:36)
[2022-03-11] MEDS ORDERED: NITROGLYCERIN 2% OINTMENT 30GM TUBE EXT STA (08:36)
--- NOTE | 2022-03-11 08:41 | Emergency Department Note ---
Impression & Plan Precordial chest pain, SOB (shortness of breath), Acute electrocardiogram changes ED Provider Note NAME: UNA KRAMER AGE: 51 SEX: M : 1970 ARRIVES VIA: Ambulance INFORMANT: [Patient] ED PROVIDER(S): [Donovan Hendrickson MD] CHIEF COMPLAINT: Chest pain HISTORY OF PRESENT ILLNESS: The patient is a 51-year-old male who presents to the ER with chest pain that began this morning around an hour and a half ago. He was walking around his home. The pain was a 5 on a scale of 1 out of 10 it went to his left arm. He was sweating, nauseated and short of breath. On the way to the hospital, he received 3 nitroglycerin sprays and 4 baby aspirin. His pain improved to a 3/10. Recently, the patient's been sweaty with just minimal exertion. He has had a lot of fatigue. He has had some intermittent chest discomfort but it has been minimal and very fleeting. The patient has no known coronary history. He does have a history of diabetes and hypertension. He states that 6 months ago he had a stress test and was told he did well. REVIEW OF SYSTEMS: See HPI for pertinent positives and negatives. A total of ten systems were reviewed and were otherwise negative. PMHx/PSHx: See Below SOCIAL HISTORY: See Below. PHYSICAL EXAM: GENERAL: Patient is in no acute distress. HEENT: No acute trauma, normocephalic atraumatic, mucous membranes moist, no nasal congestion, no scleral icterus. NECK: No stridor, no adenopathy, no meningismus, trachea is midline. LUNGS: Clear to auscultation bilaterally, no wheeze, no rhonchi, breath sounds equal. HEART: Without murmurs gallops or rubs, regular rate and rhythm. ABDOMEN: Soft, nontender, bowel sounds positive, no peritonitis. EXTREMITIES: No cyanosis or edema, full range of motion of all the joints wit hout pain or difficulty, no signs for acute trauma. NEUROLOGIC: Oriented x 3, no acute motor or sensory deficits, no focal weakness. SKIN: No rash, no jaundice, no diaphoresis. DIFFERENTIAL DIAGNOSIS: Cardiac ischemia, aortic dissection, pulmonary embolism, pneumothorax, pneu monia, pericarditis, myocarditis, esophageal rupture, GERD, cholecystitis, pancreatitis, musculoskeletal, as well as other pathologies. EMERGENCY DEPARTMENT COURSE/PROCEDURES: ECG: Indication was chest pain. The ECG shows a normal sinus rhythm with a rate of 86. There is LVH present. There is subtle ST depression in the lateral leads. No ST elevation. No PVCs. The QTc is 545. Compared to an ECG from 20 July 2021, PVCs are no longer present, the rate has increased, the subtle ST depressions laterally are new. Continuous Cardiac Monitoring: An order was placed for continuous cardiac monitoring. The monitor shows a rate of 88 with normal sinus rhythm. MEDICAL DECISION MAKING: There is no leukocytosis or concerning anemia. There is a normal platelet count. No coagulopathy. Potassium somewhat low at 3.4, no renal failure. No worrisome liver enzyme elevation. Lipase was slightly elevated, not really high enough to diagnose pancreatitis. COVID test returned negative. ECG showed a normal sinus rhythm with some subtle ST depression in the lateral leads. These depressions were new compared to previous ECGs. Cardiac enzyme testing x1 was not elevated. Chest film did not show pneumonia or CHF, no mediastinal widening. Patient was given a 500 cc saline bolus. He received IV potassium. He received IV Zofran and nitroglycerin paste. He was given oral Tylenol. The patient is currently resting comfortably. Given his presentation, given his cardiac risk factors, given the subtle ECG changes, I do think further cardiac work-up is warranted. I did speak with the patient and case management. The on-call hospitalist was consulted. Past Med/Surg History Medical History Anxiety Depression Diverticular disease Hearing deficit History of COVID-19 04/24/20 @ [facility]--fever, fatigue, loss of taste/smell, body aches--no issues now Hypercholesterolemia no meds Hypertension Intractable back pain Kidney stones Obesity Osteoarthritis Sleep apnea cpap Surgical History History of anesthesia reaction difficulty voiding after a knee sx History of arthroscopy of right knee History of bilateral inguinal hernia repair History of colonoscopy History of elbow surgery right elbow tendon repair History of endoscopic sinus surgery History of fusion of cervical spine normal ROM History of lithotripsy History of open reduction and internal fixation (ORIF) procedure right ring finger---hardware removed History of umbilical hernia repair Status post medial meniscal repair right knee Family History Grandfather (Paternal) Family history of diabetes mellitus Cancer Grandmother (Paternal) Family history of diabetes mellitus Cerebral artery occlusion Uncle Cancer Father Hyperlipidemia Other No family history of adverse response to anesthesia Social History Smoking Status: Never smoker Tobacco Type: Smokeless Tobacco (Dip or Chew) Second Hand Exposure: No; Hx Alcohol Use: Yes Alcohol type: beer Hx Substance Use: No Preferred Language: Mongolian Communication Ability: Effective Global Ceo Required: No Beliefs That Will Affect Care: None Current Living Situation: Spouse Current Living Situation Comment: Lives with and 2 kids Feels Safe at Home: Yes Safety Concerns: Feels Safe At This Time Assistive Devices: None Allergies Allergies Allergy/AdvReac Type Severity Reaction Status Date / Time No Known Allergies Allergy Unknown Verified 07/20/21 18:14 Home Meds Home Medications Medication Instructions Recorded Confirmed clonazepam 1 mg tablet (Klonopin) 1 mg PO BID 11/24/19 07/20/21 fluoxetine 40 mg capsule (Prozac) 80 mg PO QDL 11/24/19 07/20/21 losartan 50 mg tablet 50 mg PO QDL 07/20/21 07/20/21 Results & Data (ED) Vital Signs Vital Signs - 24 hr 03/11/22 08:34 03/11/22 08:34 03/11/22 09:25 Temperature 36.9 C Temperature Source Oral Pulse Rate 87 Pulse Rate [Finger] 65 Respiratory Rate 20 18 Blood Pressure 142/79 H Blood Pressure [Left Arm] 134/74 Blood Pressure Mean 100 Blood Pressure Mean [Left Arm] 94 Pulse Oximetry 93 93 95 Oxygen Delivery Method Room Air Room Air Room Air Sepsis Recent Fever Within 48 Hours No Sepsis New/Unexplained Change in Mental Status No Sepsis Action Taken by Nursing No Action Required Home Medications Current Medication List: was personally reviewed by me Laboratory Data Attestation: I reviewed the patient's lab results. Result diagrams: 03/11/22 08:30 03/11/22 08:30 Lab Results 03/11/22 03/11/22 03/11/22 Range/Units 08:30 08:30 08:30 WBC 8.14 (4.8-10.8) K/ul RBC 5.27 (4.63-6.08) M/uL Hgb 15.9 (14.0-18.0) g/dl Hct 44.7 (40.1-51.0) % MCV 84.8 (80.0-100.0) fL MCH 30.2 (25.0-34.0) pg MCHC 35.6 (32.0-36.0) g/dL RDW Std Deviation 38.0 (36.4-46.3) fL RDW Coeff of Tushar 12.4 (11.5-14.5) % Plt Count 291 (130-400) K/uL MPV 9.1 L (9.4-12.4) fL Immature Gran % (Auto) 2.2 % Neut % (Auto) 63.1 % Lymph % (Auto) 24.2 % Kleberg % (Auto) 6.4 % Eos % (Auto) 3.2 % Baso % (Auto) 0.9 % Neut # (Auto) 5.14 (1.4-6.5) K/uL Lymph # (Auto) 1.97 (1.2-3.4) K/uL Kleberg # (Auto) 0.52 (0.24-0.82) K/uL Eos # (Auto) 0.26 (0-0.50) K/uL Baso # (Auto) 0.07 (0-0.2) K/uL Immature Gran # (Auto) 0.18 H (0.00-0.02) K/uL PT 10.6 (9.0-12.0) Seconds INR 1.0 (0.9-1.1) APTT 25.8 (21.0-31.0) Seconds PTT Ratio 0.9 Sodium 137 (136-145) mmol/L Potassium 3.4 L (3.5-5.1) mmol/L Chloride 101 (98-107) mmol/L Carbon Dioxide 26 (21-32) mmol/L Anion Gap 10 (3-11) BUN 22 (6-23) mg/dl Creatinine 0.89 (0.6-1.4) mg/dl Est Cr Clr Drug Dosing 138.2 ml/min Est GFR ( Amer) 113.1 ml/min Est GFR (Non-Af Amer) 97.6 ml/min BUN/Creatinine Ratio 24.7 H (10-20) Glucose 184 H (70-99(Fasting)) mg/dl Calcium 9.0 (8.5-10.1) mg/dl Total Bilirubin 0.8 (0.2-1.0) mg/dl AST 28 (13-39) U/L ALT 59 H (7-52) U/L Alkaline Phosphatase 66 (34-104) U/L Troponin I High Sens 6.5 (0-20) pg/ml Total Protein 7.5 (6.0-8.3) gm/dl Albumin 4.2 (3.4-5.0) gm/dl Globulin 3.3 (2.5-4.0) gm/dl Albumin/Globulin Ratio 1.3 (0.9-2) Lipase 119 H (11-82) U/L SARS-CoV-2, RNA, NAAT (NEGATIVE) 03/11/22 Range/Units 08:30 WBC (4.8-10.8) K/ul RBC (4.63-6.08) M/uL Hgb (14.0-18.0) g/dl Hct (40.1-51.0) % MCV (80.0-100.0) fL MCH (25.0-34.0) pg MCHC (32.0-36.0) g/dL RDW Std Deviation (36.4-46.3) fL RDW Coeff of Tushar (11.5-14.5) % Plt Count (130-400) K/uL MPV (9.4-12.4) fL Immature Gran % (Auto) % Neut % (Auto) % Lymph % (Auto) % Kleberg % (Auto) % Eos % (Auto) % Baso % (Auto) % Neut # (Auto) (1.4-6.5) K/uL Lymph # (Auto) (1.2-3.4) K/uL Kleberg # (Auto) (0.24-0.82) K/uL Eos # (Auto) (0-0.50) K/uL Baso # (Auto) (0-0.2) K/uL Immature Gran # (Auto) (0.00-0.02) K/uL PT (9.0-12.0) Seconds INR (0.9-1.1) APTT (21.0-31.0) Seconds PTT Ratio Sodium (136-145) mmol/L Potassium (3.5-5.1) mmol/L Chloride (98-107) mmol/L Carbon Dioxide (21-32) mmol/L Anion Gap (3-11) BUN (6-23) mg/dl Creatinine (0.6-1.4) mg/dl Est Cr Clr Drug Dosing ml/min Est GFR ( Amer) ml/min Est GFR (Non-Af Amer) ml/min BUN/Creatinine Ratio (10-20) Glucose (70-99(Fasting)) mg/dl Calcium (8.5-10.1) mg/dl Total Bilirubin (0.2-1.0) mg/dl AST (13-39) U/L ALT (7-52) U/L Alkaline Phosphatase (34-104) U/L Troponin I High Sens (0-20) pg/ml Total Protein (6.0-8.3) gm/dl Albumin (3.4-5.0) gm/dl Globulin (2.5-4.0) gm/dl Albumin/Globulin Ratio (0.9-2) Lipase (11-82) U/L SARS-CoV-2, RNA, NAAT NEGATIVE (NEGATIVE) Administered Medications Fluoxetine HCl (Fluoxetine Hcl 20 Mg Cap) 80 mg PO QDL [facility] Stop: 04/10/22 11:29 Last Admin: 03/11/22 13:04 Dose: 80 mg Documented By: Heparin Sodium/Dextrose (Heparin Sodium/Dextrose) 25,000 units in 500 mls @ 37 mls/hr IV .[id number] [facility]; Protocol Stop: 04/10/22 11:14 Last Admin: 03/11/22 11:19 Dose: 1,850 units/hr, 37 mls/hr Documented By: MS Co-signed By: JOE Nitroglycerin (Nitroglycerin 2% Ointment 30gm Tube) 1 inch EXT Q6 [facility] Stop: 04/10/22 11:59 Last Admin: 03/11/22 11:23 Dose: 1 inch Documented By: MS Discontinued Medications Acetaminophen (Acetaminophen 500 Mg Tab) 1,000 mg PO NOW STA Stop: 03/11/22 08:37 Last Admin: 03/11/22 08:50 Dose: 1,000 mg Documented By: JOHNNY Heparin Sodium (Porcine) (Heparin Sod (Porcine) 1000 Unit/Ml) 8,000 units IV NOW ONE Stop: 03/11/22 11:16 Last Admin: 03/11/22 11:42 Dose: 8,000 units Documented By: Co-signed By: MARY Heparin Sodium/Dextrose (Heparin Iv Adult Wt-Based Standard With Bolus Protocol) 1 each IV Q15M MICHAELA; Protocol Stop: 03/11/22 12:24 Last Admin: 03/11/22 12:00 Dose: Not Given Documented By: Sodium Chloride (Nss) 500 mls @ 999 mls/hr IV .Q31M STA Stop: 03/11/22 09:06 Last Infusion: 03/11/22 09:10 Dose: 0 mls/hr Documented By: Admin: 03/11/22 08:40 Dose: 999 mls/hr Documented By: JOHNNY Potassium Chloride (K Lio / Wtr) 10 meq in 100 mls @ 100 mls/hr IV ONE ONE; Protocol Stop: 03/11/22 10:13 Last Infusion: 03/11/22 10:29 Dose: 0 mls/hr Documented By: Admin: 03/11/22 09:29 Dose: 100 mls/hr Documented By: JOHNNY Nitroglycerin (Nitroglycerin 2% Ointment 30gm Tube) Confirm Administered Dose 18 inch EXT .STK-MED ONE Stop: 03/11/22 08:37 Last Admin: 03/11/22 08:37 Dose: 1 inch Documented By: JOHNNY Nitroglycerin (Nitroglycerin 2% Ointment 30gm Tube) 1 inch EXT NOW STA Stop: 03/11/22 08:37 Last Admin: 03/11/22 08:40 Dose: Not Given Documented By: JOHNNY Ondansetron HCl (Ondansetron Inj 2 Mg/Ml 2 Ml Vial) 4 mg IV NOW STA Stop: 03/11/22 08:37 Last Admin: 03/11/22 08:50 Dose: 4 mg Documented By: JOHNNY Potassium Chloride (Potassium Chloride Crtab 20 Meq Tabcr) 40 meq PO NOW STA Stop: 03/11/22 15:30 Last Admin: 03/11/22 16:37 Dose: 40 meq Documented By: Imaging Data Radiologist's Impression: Chest X-Ray 03/11/22 08:36 XR chest 1V portable CLINICAL HISTORY: Chest Pain TECHNIQUE: Single frontal radiograph of the chest was obtained. Comparison: Comparison is made to chest radiograph 07/20/2021 FINDINGS: No lines and tubes are seen. Cardiomegaly is noted. The lungs are clear. No evidence of pleural effusion or pneumothorax. IMPRESSION: No acute chest disease. ACT 112: Negative or not required by law. Electronically signed by: Tha Peck M.D. 03/11/2022 8:47 AM Discharge Plan Visit Data Chief Complaint: Chest Pain Stated Complaint: CHEST PAIN ED Provider: Donovan Hendrickson Discharge Problem: Precordial chest pain, SOB (shortness of breath), Acute electrocardiogram changes Patient Disposition: Admitted As Inpatient Condition: Fair Discharge Instructions Interventions: ED Discharge Assessment Last Done: 03/11/22 09:56
--- NOTE | 2022-03-11 08:49 | XRay Report ---
XR chest 1V portable CLINICAL HISTORY: Chest Pain TECHNIQUE: Single frontal radiograph of the chest was obtained. Comparison: Comparison is made to chest radiograph 07/20/2021 FINDINGS: No lines and tubes are seen. Cardiomegaly is noted. The lungs are clear. No evidence of pleural effus ion or pneumothorax. IMPRESSION: No acute chest disease. ACT 112: Negative or not required by law. Electronically signed by: Tha Peck M.D. 03/11/2022 8:47 AM
[2022-03-11 08:56] LABS: Basophils # (auto) 0.07 K/uL (0-0.2); Basophils % (auto) 0.9 %; Eosinophils # (auto) 0.26 K/uL (0-0.50); Eosinophils % (auto) 3.2 %; Hematocrit (blood only) 44.7 % (40.1-51.0); Hemoglobin 15.9 g/dl (14.0-18.0); Immature Granulocytes # (auto) 0.18 K/uL (0.00-0.02); Immature Granulocytes % (auto) 2.2 %; Lymphocytes # (auto) 1.97 K/uL (1.2-3.4); Lymphocytes % (auto) 24.2 %; Mean Corpuscular Hemoglobin 30.2 pg (25.0-34.0); Mean Corpuscular Hgb Conc 35.6 g/dL (32.0-36.0); Mean Corpuscular Volume 84.8 fL (80.0-100.0); Mean Platelet Volume 9.1 fL (9.4-12.4); Monocytes # (auto) 0.52 K/uL (0.24-0.82); Monocytes % (auto) 6.4 %; Neutrophils # (auto) 5.14 K/uL (1.4-6.5); Neutrophils % (auto) 63.1 %; Platelet Count 291 K/uL (130-400); RDW Coefficient of Variation 12.4 % (11.5-14.5); Red Blood Count 5.27 M/uL (4.63-6.08); White Blood Count 8.14 K/ul (4.8-10.8)
[2022-03-11 09:08] LABS: Albumin Globulin Ratio 1.3 (0.9-2); Albumin Level 4.2 gm/dl (3.4-5.0); BUN Creatinine Ratio 24.7 (10-20); Bilirubin,Total 0.8 mg/dl (0.2-1.0); Creatinine Clr Calc Pharmacy 138.2 ml/min; Est GFR (African American) 113.1 ml/min; Est GFR (Non-African American) 97.6 ml/min; Globulin 3.3 gm/dl (2.5-4.0); Partial Thromboplastin Ratio 0.9; Partial Thromboplastin Time 25.8 Seconds (21.0-31.0); Potassium 3.4 mmol/L (3.5-5.1); Prothrombin Time 10.6 Seconds (9.0-12.0); Total Protein 7.5 gm/dl (6.0-8.3)
[2022-03-11 09:13] LABS: Troponin I High Sensitivity 6.5 pg/ml (0-20)
[2022-03-11] MEDS ORDERED: POTASSIUM CHLORIDE / WTR 10 MEQ/100 ML PLCT IV ONE (09:14)
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
[2022-03-11] MEDS ORDERED: ONDANSETRON INJ 2 MG/ML 2 ML VIAL IV PRN (10:19)
[2022-03-11] MEDS ORDERED: Heparin IV Adult Wt-Based Standard WITH Bolus Protocol IV SCH (10:38)
[2022-03-11] MEDS ORDERED: HEPARIN SODIUM/DEXTROSE 25,000 UNITS/500 ML BAG IV SCH (11:15)
[2022-03-11] MEDS ORDERED: HEPARIN SOD (PORCINE) 1000 UNIT/ML IV ONE (11:15)
[2022-03-11] MEDS: NITROGLYCERIN 2% OINTMENT 30GM TUBE EXT SCH ×2 (11:23→17:12)
[2022-03-11] MEDS ORDERED: FLUoxetine HCL 20 MG CAP PO SCH (11:30)
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
--- NOTE | 2022-03-11 13:44 | Electrocardiogram Report ---
Test Reason : Blood Pressure : / mmHG Vent. Rate : 086 BPM Atrial Rate : 086 BPM P-R Int : 156 ms QRS Dur : 094 ms QT Int : 456 ms P-R-T Axes : 034 004 033 degrees QTc Int : 545 ms Normal sinus rhythm Minimal voltage criteria for LVH, may be normal variant Nonspecific ST abnormality Prolonged QT Abnormal ECG When compared with ECG of 20-JUL-2021 17:08, Aberrant conduction is no longer Present ST now depressed in Anterolateral leads QT has lengthened Confirmed by Omer Vora ([id number]) on 03/11/2022 1:43:58 PM Referred By: REFERRED SELF Confirmed By:Omer Vora
[2022-03-11] MEDS ORDERED: DEXTROSE 50% 50 ML SYRINGE IV PRN (15:11)
[2022-03-11] MEDS ORDERED: GLUCOSE 40% GEL 15 GM TUBE PO PRN (15:11)
[2022-03-11] MEDS ORDERED: GLUCOSE 10 TAB/TUBE PO PRN (15:11)
[2022-03-11] MEDS ORDERED: GLUCAGON FOR INJ 1 MG VIAL SQ PRN (15:11)
[2022-03-11] MEDS ORDERED: CARBOHYDRATES FOR HYPOGLYCEMIA PO PRN (15:11)
[2022-03-11] MEDS ORDERED: POTASSIUM CHLORIDE CRTAB 20 MEQ TABCR PO STA (15:29)
--- NOTE | 2022-03-11 16:22 | Ultrasound Report ---
BILATERAL LOWER EXTREMITY VENOUS DOPPLER CLINICAL HISTORY: Chest pain. Evaluate for DVT COMPARISON STUDY: No previous studies for comparison. TECHNIQUE: Sonography of the deep venous system of the bilateral lower extremities was performed. Co mpression and augmentation were evaluated. FINDINGS: The bilateral common femoral, superficial femoral and popliteal veins were compressible. A ugmentation was normal. Flow was shown within the deep calf vessels. IMPRESSION: No evidence of deep venous thrombus within the bilateral lower extremities. ACT 112: Negative or not required by law. Electronically signed by: Donte Silverio M.D. 03/11/2022 4:20 PM
[2022-03-11] MEDS ORDERED: ALPRAZolam 0.5 MG TABLET PO PRN (16:47)
[2022-03-11] MEDS: INSULIN ASPART PER UNIT SC SCH ×2 (17:09→19:59)
[2022-03-11] MEDS: ACETAMINOPHEN 325 MG TAB PO PRN (17:11)
[2022-03-11 17:44] LABS: Partial Thromboplastin Ratio 1.5; Partial Thromboplastin Time 41.2 Seconds (21.0-31.0)
[2022-03-11] MEDS: LANTUS PER UNIT CHARGE SQ SCH (20:00)
[2022-03-11] MEDS: hydrOXYzine HCl 25 MG TAB PO SCH (20:04)
[2022-03-11] MEDS ORDERED: clonazePAM 1 MG TAB PO SCH (21:00)
[2022-03-12] MEDS: NITROGLYCERIN 2% OINTMENT 30GM TUBE EXT SCH ×3 (00:10→11:22)
[2022-03-12 02:22] LABS: Hemoglobin 14.1 g/dl (14.0-18.0); Mean Corpuscular Hemoglobin 30.1 pg (25.0-34.0); Mean Corpuscular Hgb Conc 34.4 g/dL (32.0-36.0); Mean Corpuscular Volume 87.4 fL (80.0-100.0); Mean Platelet Volume 8.8 fL (9.4-12.4); Platelet Count 212 K/uL (130-400); RDW Coefficient of Variation 12.3 % (11.5-14.5); RDW Standard Deviation 39.2 fL (36.4-46.3); Red Blood Count 4.69 M/uL (4.63-6.08); White Blood Count 8.63 K/ul (4.8-10.8)
[2022-03-12 02:53] LABS: Anion Gap 5 (3-11); BUN Creatinine Ratio 24.4 (10-20); Blood Urea Nitrogen 20 mg/dl (6-23); Carbon Dioxide 29 mmol/L (21-32); Chloride 102 mmol/L (98-107); Cholesterol 255 mg/dl (0-200); Glucose 161 mg/dl (70-99(Fasting)); HDL Cholesterol 29 mg/dl; Potassium 3.6 mmol/L (3.5-5.1); Sodium 136 mmol/L (136-145); Triglycerides 693 mg/dl (0-150)
[2022-03-12 02:59] LABS: Chol HDL Ratio 8.8 (0-5)
[2022-03-12] MEDS: ACETAMINOPHEN 325 MG TAB PO PRN (07:33)
[2022-03-12] MEDS: INSULIN ASPART PER UNIT SC SCH ×2 (08:11→12:53)
[2022-03-12] MEDS: LANTUS PER UNIT CHARGE SQ SCH (08:11)
[2022-03-12] MEDS: hydrOXYzine HCl 25 MG TAB PO SCH (08:12)
[2022-03-12] MEDS ORDERED: ASPIRIN 81 MG ECTAB PO SCH (09:00)
[2022-03-12] MEDS ORDERED: POTASSIUM CHLORIDE CRTAB 20 MEQ TABCR PO SCH (09:00)
[2022-03-12] MEDS ORDERED: ATORVASTATIN 40 MG TAB PO SCH (09:00)
[2022-03-12 09:50] LABS: Estimated Average Glucose 180 mg/dl; Hemoglobin A1C 7.9 % (4.5-5.6)
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
--- NOTE | 2022-03-13 21:57 | Electrocardiogram Report ---
Test Reason : Blood Pressure : / mmHG Vent. Rate : 060 BPM Atrial Rate : 060 BPM P-R Int : 150 ms QRS Dur : 100 ms QT Int : 446 ms P-R-T Axes : 002 013 024 degrees QTc Int : 446 ms Normal sinus rhythm Normal ECG When compared with ECG of 11-MAR-2022 08:25, Non-specific change in ST segment in Inferior leads ST no longer depressed in Lateral leads QT has shortened Confirmed by Jean Claude Garrett ([id number] on 03/13/2022 9:56:37 PM Referred By: REFERRED SELF Confirmed By:Jean Claude Garrett
== END 2022-03-12 13:37 | disposition home or self-care (01) | DRG 313 ==
LOC: ED 08:19 → 2S 09:33 → INTOOBSV 09:33 → 2S 09:56

== ENCOUNTER 2023-03-17 21:44 | Observation (INO) ==
--- OUTSIDE RECORDS SUMMARY | 2023-03-17 21:48 | External Medical Summary | Continuity of Care Document ---
Author Name Unknown Organization [id number] Address [address] [place] [id number] Care Team Providers Care Taximeter Repairer Name Role Phone IndukevJackie Kilo Primary Care Physician [phone] [id number] Date(s): 02/14/23 - 02/14/23 [facility] 0 [facility] [address] [facility] Medicine [address] [place] [address] Encounter Diagnosis OA (osteoarthritis) of knee(Discharge Diagnosis) - 02/14/23 Discharge Disposition: Home or Self Care Attending Physician: MD Jose, Jacky A Allergies, Adverse Reactions, Alerts No Known Allergies Immunizations Given and Recorded Vaccine Date Status Refusal Reason SARS-CoV-2 (COVID-19) mRNA-1273 vaccine 1 10/01/21 Recorded SARS-CoV-2 (COVID-19) mRNA-1273 vaccine 2 08/25/20 Recorded SARS-CoV-2 (COVID-19) mRNA-1273 vaccine 3 07/28/20 Recorded pneumococcal 23-valent vaccine 4 07/22/21 Recorded tetanus/diphtheria/pertuss, acel (Tdap) 5 11/24/19 Recorded 1Result Comment: 2022-05-19: Historical information-source unspecified 2Result Comment: 2022-05-19: Historical information-source unspecified 3Result Comment: 2022-05-19: Historical information-source unspecified 4Result Comment: 2022-05-19: Historical information-source unspecified 5Result Comment: 2022-05-19: Historical information-source unspecified Medications Accu-Chek Active Glucose Monitor Start: 05/06/22 17:08:00 EST, See Instructions, Disp# 1 each, for bid testing, Pharmacy: [id number] Start Date: 05/06/22 Status: Ordered Accu-Chek Active Test Strips Start: 05/06/22 17:11:00 EST, See Instructions, Disp# 100 each, Refills: 3, for bid testing, Pharmacy: [id number] Start Date: 05/06/22 Status: Ordered Accu-Chek Softclix (28G) Lancets Start: 05/06/22 17:11:00 EST, See Instructions, Disp# 100 each, Refills: 3, for bid testing, Pharmacy: [facility] Start Date: 05/06/22 Status: Ordered atorvastatin 40 mg oral tablet Start: 04/21/22 15:09:00 EST, 1 tab, PO, Daily, Disp# 90 tab, Refills: 3, Pharmacy: [facility] Start Date: 04/21/22 Stop Date: 04/16/23 Status: Ordered Farxiga 10 mg oral tablet Start: 01/19/23 15:31:00 EDT, See Instructions, Disp# 90 tab, Refills: 3, TAKE 1 TABLET BY MOUTH ONCE DAILY, Pharmacy: [facility] Start Date: 01/19/23 Status: Ordered FLUoxetine 40 mg oral capsule Start: 02/23/22 17:16:00 EDT, See Instructions, Disp# 60 cap, Refills: 0, TAKE 2 CAPSULES BY MOUTH ONCE DAILY, Pharmacy: [facility] Start Date: 02/23/22 Status: Ordered glipiZIDE 5 mg oral tablet, extended release Start: 10/11/22 12:22:00 EDT, See Instructions, Disp# 30 tab, Refills: 5, TAKE 1 TABLET BY MOUTH ONCE DAILY, Pharmacy: [facility] Start Date: 10/11/22 Status: Ordered hydroCHLOROthiazide 25 mg oral tablet Start: 10/18/22 11:33:00 EDT, See Instructions, Disp# 30 tab, Refills: 5, TAKE 1 TABLET BY MOUTH ONCE DAILY, Pharmacy: [facility] Start Date: 10/18/22 Status: Ordered hydrOXYzine hydrochloride 10 mg oral tablet Start: 11/10/22 16:45:00 EDT, See Instructions, Disp# 90 tab, Refills: 2, TAKE 1 TABLET BY MOUTH THREE TIMES DAILY , Pharmacy: [facility] Start Date: 11/10/22 Status: Ordered ibuprofen 600 mg oral tablet Start: 07/22/20 16:46:00 EDT, 1 tab, PO, qid, Disp# 120 tab, Refills: 4, PRN: as needed for pain, Pharmacy: [facility] Start Date: 07/22/20 Status: Ordered olmesartan 20 mg oral tablet Start: 10/18/22 11:33:00 EDT, See Instructions, Disp# 30 tab, Refills: 5, TAKE 1 TABLET BY MOUTH ONCE DAILY, Pharmacy: [facility] Start Date: 10/18/22 Status: Ordered Vascepa 1 g oral capsule Start: 02/23/22 15:08:00 EDT, See Instructions, Disp# 120 cap, Refills: 0, TAKE 2 CAPSULES BY MOUTHTWICE DAILY. take with breakfast and supper to help lower triglycerides. do not break, chew, or open capsules, Pharmacy: [facility] Start Date: 02/23/22 Status: Ordered Mental Status 02/14/23 Barriers to Learning one year None evide nt Mandatory Health Literacy Documentation Yes Health Literacy Communication Barriers N ever Primary Language Dominican Problem List Condition Confirmation Course Effective Dates Status H ealth Status Informant Left breast mass Confirmed Active Diabetes mellitus Confirmed Active Family history of breast cancer in mother Confirmed Active Anxiety Confirmed Active Hyperlipidemia Confirmed Active Hypertension Confirmed Active OA (osteoarthritis) of knee Confirmed Active Pain in breast Confirmed Active Right knee pain Confirmed Active Pneumonia Confirmed Active ACL tear Confirmed Active Severe sleep apnea Confirmed Active Tobacco user Confirmed Active Diagnosis Diagnosis Type Effective Dates Health Status inical Service Informant OA (osteoarthritis) of knee Discharge Diagnosis 02/14/23 Procedures Procedure Date Related Diagnosis Body Site Status Echocardiogram 1 05/22/[address] 2 04/09/20 Completed Extracorporeal Shock Wave Lithotripsy 03/01/[address] of abdomen and pelvis 3 02/22/19 Completed Colonoscopy 4, 5 11/23/[address] of abdomen and pelvis 6 11/12/18 Completed Mammogram 7 06/06/18 Completed Arthroscopy of knee 8 Com pleted Bilateral inguinal hernia Completed Cervical spine 9 Complete d Elbow 10 Completed Medial meniscus of knee joint 11 Completed Open reduction and internal fixation of fracture 12 Completed Repair,arm tendon 13 Comp leted Sinus 14 Completed Umbilical hernia Complete d 1Left ventricular systolic function is normal Grade I diastolic dysfunction, (abnormal relaxation pattern) Borderline right ventricular enlargement There is a modertae mitral annular calcification 2IMPRESSIONl 1. Solid circumscribed 9mm left lower lobe nodule which is unchanged since CT of February 22, 2019.This nodule has increased in size since earlier chest CTof June 08, 2008, when the mass measured 5mm. This represents a slowing growing pulmonary nodule. This possible contains fat and therefore may represent hamartoma. However, this nodule is indeterminate and follow-up chest CT in 6 months isrecommended. 2. No acute findings within the chest. 3. No cardiomegaly. 31. Bilateral nephrolithiasis. No ureteral or bladder calculi identified. 2. No solid renal masses identified. No uroepithelial lesions are visualized. 3. No evidence of bowel obstruction. No evidence of free air. 4. Normal appendix. Diverticulosis with mild signoid wall thickening. 5. Stable solid 9mm left loewr lobe pulmonary nodule. 4One 10mm polyp at the recto-sigmoid colon, removed with hot snare. Resected and retrieved. Diverticulosis in the sigmoid colon. The examined portion of the ileum was normal. Await pathology. 5Pathology results: Rectosigmoid polypectomy: Serrated adenoma consisted with sessile serrated adenoma. 61. Acute sigmoid diverticulitis. No perforation or abscess. 2. Bilateral nephrolithiasis and a punctate stone within the bladder. No ureteral stones. No hydronephrosis. 3. Normal appendix. 4. A 3cm partially enhancing lesion within the right hepatic lobe. This is incompletely characterized on this study but favors a hemagioma. 5. A 9mm nodule within the left lower lobe. 7male bilat digital diagnostic mammogram and targeted l ultrasound. pt reports swellling and pain inthe left breast for 6m impression acr bi rads cat 2 benign, ultrasound acr bi rads cat 2 benign pt has been verbally notified 8right knee 9fusion of cervical spine 10right elbow tendon repair 11right knee 12ORIF procedure right ring finger- hardware removed [id number] 14endoscopic sinus surgery Social History Social History Type Response Smoking Status Never smoked cigaret dia Sex Male Ortho Outpt Note * MD Jose, Jacky A: MODIFY MD Jose, Jacky A: MODIFY, MODIFY Event Display: Ortho Outpt Note Authored Date: Name:KRISTOPHER KRAMER Patient Number:[id number] :1970 Date of Service:02/14/2023 CHIEF COMPLAINT: HPI: Kristopher is a 52- year-old male [place] [facility] [place] Previously had right knee arthroscopy with medial and lateral meniscectomies in 2020 and a history of chronic ACL tear. He presented with MRI with severe lateral compartment DJD. Following his surgery in 2020 he was feeling great, walking without difficulties until 09/23/2022 when his ankle buckled at work and he fell directly on his anterior right knee. He continues to have pain and soreness both medially and laterally. He continues to have a lot of instability especially at work and continues to wear a hinged knee braceat workbecause he cannotwear thefunctional brace over his pants. He is interested in a cortisone injection today and starting the TAMEZ series once improved by insurance. Today he rates his pain5/10. PHYSICAL EXAM: Focusing on the patient'srightlower extremity: 2+ DP pulse Sensation to light touch is intact Motor to the gastroc soleus, tibialis anterior, and EHL is 5/5. Able to perform straight leg raise. + Medial and lateraljoint line tenderness. Ligamentous examination exhibits: + Ashlie's mildly increased laxity with varus and valgus stress< 1cm of motion at 30 degrees +Batool's + Anterior drawer test - Posterior drawer test - Dial test @ 30 and 90 degrees -Effusion Range of motion 0 to 120 + Tenderness to palpation over medial and lateral patellar facet > patellar tendon RADIOGRAPHY: I reviewed MRI of the right knee which showed post-surgical changes noted medial and lateral meniscus. Loss bone on bone lateral compartment, chondromalacia of patellofemoral compartment. Absent ACL;PCL, LCL, MCL are intact. IMPRESSION: Right knee pain secondarily to degenerative changes with an ACL deficient knee, acute onchronic GOAL: Decrease pain PLAN: - In addition due to their significant amount of pain today, they were offered a cortisone injection. The risks of the injections were discussed and included but not limited to: Inflection, bleeding,nerve damage, continued pain, possible need for repeat injections, altered glucose levels, and permanent skin changes at the site of injection. They would like to proceed. They will keep track of howmuch pain relief they obtain and for how long. They will ice tonight and over the next several daysand understands it may be more painful tomorrow due to a steroid flare. - Discussed the functional ACL brace is the best option for his instability and recommend its use for work and daily activities - Future consideration for TKA if conservative measures fail - Continue with ice, rest, anti-inflmmatories and Tylenol as needed for pain Follow-up for TAMEZ injections once approved The patient understood all my instructions and explanation; all their questions were satisfactorilyaddressed. PROCEDURE: After obtaining verbal consent, performing a time-out, identifying therightknee as the correct knee for intra-articular cortisone injection, the anterolateral portal area was palpated and marked. Magdaleno Quiroga, my nurse was present to verify the procedure and site.This area was prepped with Betadine, followed by ethyl chloride spray and alcohol wipe. Then, a combination of1 mL of 1% lidocaine plain plus4 mL of 0.25% Marcaine plain plus 1mL of 40 mg of Depo-Medrol were easily injected. The patient noted still had pain after injection. The area was cleaned and dried alem Band-Aid was placed on the top. The patient will follow all of my above-noted instructions. ATTESTATION: I, Natalie Burch, scribing forand in the presence of, Jacky Garcia, on this date,02/14/2023 10:09:29. I, Dr. Garcia, saw and examined the patient with Natalie Burch acting as my scribe. I reviewed the note and agree with the documented findings and the plan of care I developed. Electronic Signature on File Electronically Reviewed/Signed by: Natalie Burch Author Signature Dt/Tm:02/14/2023 10:37 AM Electronically Reviewed/Signed by: Jacky Garcia MD Cosigner Signature Dt/Tm: 02/14/2023 10:40 AM [facility] Orthopedic Designer Department of Orthopaedics and Rehabilitation [facility] [address], [place] [address] [place] Patient Care team information Care Team Personnel Name: SAUNDRA Nunez Shari A Position: Nurse Pract - Family Med Member Role: Primary Care Provider Address: Address: [address] [place] [address], [place] [address] [place] Care Team Related Persons Name: CORY KRAMER Address: home No Address Provided
--- OUTSIDE RECORDS SUMMARY | 2023-03-17 21:48 | External Medical Summary | Summary of Care ---
Author Name Unknown Organization [facility] Address [address] [place] [address] Phone [phone] Care Team Providers Care Upper Marker Name Role Phone Lena Joseph MD Primary Care Provider [phone] Reason for Visit * Reason Comments eRx-Medication Refill Encounter Details Date Type Department Care Team (Late st Contact Info) Description 07/28/2022 Refill Family Practice [facility] [address] [place] [address] Lena Joseph MD [address] [place] [address] Allergies Active Allergy Reactions Criticality Noted Date Comments Meloxicam 05/03/2021 documented as of this encounter (statuses as of 02/24/2023) Medications Medication Sig Dispensed Refills Start Date End Date Status valACYclovir HCl 1 GM Oral Tablet (Valtrex) Start: 10/09/20 9:17:00 EDT, See Instructions, Disp# 4 tab, Refills: 3, 2 tab PO stat with onset of symptoms and repeat 2 tabs po in 12 hours drink plenty of fluids, Pharmacy: [id number] 10/09/2020 Active Losartan Potassium 100 MG Oral Tablet (Cozaar)Indicati ons:HTN, goal below 130/80 Take by mouth 1 Tablet in the morning. 90 Tablet 3 07/22/2021 Active clonazePAM 1 MG Oral Tablet (KlonoPIN)Indica tions:WINSTON (generalized anxiety disorder) TAKE 1 TABLET BY MOUTH TWICE DAILY 60 Tablet 2 08/18/2021 Active ALPRAZolam 1 MG Oral Tablet (Xanax)Indicatio ns:Flying phobia Take one by mouth 1/2 hour prior to flight 4 Tablet 0 11/02/2021 Active metFORMIN HCl ER 500 MG Oral Tablet Extended Release 24 Hour (Glucophage XR) Take by mouth 1 Tablet in the morning AND 1 Tablet before bedtime. 180 Tablet 3 11/03/2021 Active ALPRAZolam 1 MG Oral Tablet (xaNAX)Indicatio ns:Flying phobia Take by mouth 1 Tablet as needed for Anxiety. 30 Tablet 0 11/03/2021 Active FLUoxetine HCl 40 MG Oral Capsule (PROzac) TAKE 2 CAPSULES BY MOUTH EVERY MORNING 180 Capsule 1 01/14/2022 3 Discontinued FLUoxetine HCl 40 MG Oral Capsule (PROzac) TAKE 2 CAPSULES BY MOUTH EVERY MORNING 180 Capsule 0 07/29/2022 3 Discontinued documented as of this encounter (statuses as of 02/24/2023) Active Problems Problem Noted Date Diagnosed Date Morbid obesity due to excess calories 11/02/2021 HTN, goal below 130/80 05/03/2021 Type 2 diabetes mellitus wit h hemoglobin A1c goal of less than 7.0% 05/03/2021 Kidney stones 05/03/2021 Flying phobia 05/03/2021 URBAN (obstructive sleep apnea) 05/03/2021 WINSTON (generalized anxiety disorder) 04/30/2021 documented as of this encounter (statuses as of 02/24/2023) Resolved Problems Problem Noted Date Diagnosed Date Resolved Date Obesity, Class II, BMI 35-39 .9, isolated (see actual BMI) 05/03/2021 11/02/2021 documented as of this encounter (statuses as of 02/24/2023) Immunizations Name Administration Dates Next Due COVID-19 mRNA, LNP-s, No Pre serve, 2-Dose Series (Moderna) 08/25/2020,07/28/2020 COVID-19, mRNA, LNP-s, PF, B ooster, 100mcg/0.5mg (Moderna) 10/01/2021 Pneumococcal Polysaccharide PPV23 (Pneumovax) SEASONAL INFLUENZA, PF, 6 M & Above, IM , (FLULAVAL or FLUZONE) 07/22/2021 documented as of this encounter Social History Tobacco Use Types Packs/Day Years Used Date Smoking Tobacco: Never Smokeless Tobacco: Current Chew Sex and Gender Information Value Date Recorded Sex Assigned at Not on file Gender Identity Not on file Sexual Orientation Not on file Job Start Date Occupation Industry Not on file Not on file Not on file documented as of this encounter Miscellaneous Notes * Telephone Encounter - Rohan Rock CPhT - 02/24/2023 5:03 PM EDT Images from the original note were not included. Received message from [facility] regarding patient needing appointment. Addressed in separate encounter Thank you, [place] ([facility]) Green [employer] Caster III [facility] 02/24/2023, 5:03 PM * Telephone Encounter - Mariah Moffett [facility] - 11/18/2022 12:13 PM EDT Received message from [facility] regarding patient needing appointment. Placed call to patient to advise. Left message on voicemail to call back and schedule appointment. Thanks, Mariah Moffett, PharmD Clinical Pharmacist [facility] ([facility]) [facility] [phone] 11/18/2022 12:13 PM * Telephone Encounter - Raul Dow [facility] - 07/29/2022 11:06 AM EDT Signed Prescriptions: Disp Refills FLUoxetine HCl 40 MG Oral Capsule (PROzac) 180 Ca*0 Sig: TAKE 2 CAPSULES BY MOUTH EVERY MORNING Authorizing Provider: LENA JOSEPH Ordering User: RAUL DOW * Telephone Encounter - Raul Dow RP - 07/29/2022 11:05 AM EDT Please contact patient so that an appointment can be scheduled with his PRIMARY CARE provider. Refill authorized to hold patient over in the mean time. Last Visit: 07/22/2021 (in office), Visit date not found (telemedicine) Next Visit: Visit date not found Thank You, Raul Dow, Pharm-D Clinical Pharmacist [facility] [phone] 07/29/2022, 11:05 AM documented in this encounter Plan of Treatment Health Maintenance Due Date Last Done Comments Hepatitis B (1 of 3 - 3-dose series) 1970 Lipid Panel 1968 Depression Screening 1980 HIV Screening 1983 Diabetic Foot Exam 1986 Hepatitis C Screening 1986 DTaP,Tdap,and Td Vaccines (1 - Tdap) 1987 Cologuard 2013 Colonoscopy 2013 Colorectal Cancer Screening 2013 Fecal Occult Blood Test 2013 Sigmoidoscopy 2013 Zoster Vaccines (1 of 2) 2018 *BASELINE EKG FOR HTN 05/13/2021 HbA1c 10/31/2021 05/03/2021, 04/05/2021 GFR 07/05/2022 07/05/2021, 04/13/2021, 04/13/2021 Albumin/Creatinine Ratio 07/22/2022 07/22/2021 Diabetic Eye Exam 07/22/2022 07/22/2021 Pneumococcal Vaccine: Pediatrics (0 to 5 Years) and At-Risk Patients (6 to 64 Years) (2 - PCV) 07/22/2022 07/22/2021 COVID-19 Vaccine (4 - 2022-2 4 season) 2022 10/01/2021, 08/25/2020, 07/28/2020 Influenza Vaccine (FLU shot) (#1) 2022 07/22/2021 GARDASIL-HPV IMMUNIZATION SERIES Aged Out No longer eligible b ased on patient's age to complete this topic MENINGOCOCCAL (MENACTRA/MENVEO) Aged Out No longer eligible b ased on patient's age to complete this topic documented as of this encounter Medical Devices Not on filedocumented as of this encounter Care Teams Upper Marker Relationship Specialty Start Date End Date Lena Joseph MD [address] [place] [address] PCP - General Family Medicine 05/03/21 documented as of this encounter
--- OUTSIDE RECORDS SUMMARY | 2023-03-17 21:48 | External Medical Summary | Summary of Care ---
Author Name Unknown Organization [facility] Address [address] [place] [address] Phone [phone] Care Team Providers Care Business Development Coordinator Name Role Phone Lena Joseph MD Primary Care Provider [phone] Reason for Visit * Reason Comments eRx-Medication Refill Encounter Details Date Type Department Care Team Description 11/10/2022 Refill Family Practice [facility] [address] [place] [address] Lena Joseph MD [address] [place] [address] Allergies Active Allergy Reactions Severity Noted Date Comments Meloxicam 05/03/2021 documented as of this encounter (statuses as of 11/12/2022) Medications Medication Sig Dispensed Refills Start Date End Date Status valACYclovir HCl 1 GM Oral Tablet (Valtrex) Start: 10/09/20 9:17:00 EDT, See Instructions, Disp# 4 tab, Refills: 3, 2 tab PO stat with onset of symptoms and repeat 2 tabs po in 12 hours drink plenty of fluids, Pharmacy: [id number] 10/09/2020 Active Losartan Potassium [...] BY MOUTH EVERY MORNING 180 Capsule 0 11/12/2022 Active FLUoxetine HCl 40 MG Oral Capsule (PROzac) TAKE 2 CAPSULES BY MOUTH EVERY MORNING 180 Capsule 0 07/29/2022 3 Discontinued documented as of this encounter (statuses as of 11/12/2022) Active Problems Problem Noted Date Morbid obesity due to excess calories HTN, goal below 130/80 05/03/2021 Type 2 diabetes mellitus with hemoglobin A1c goal of less than 7.0% 05/03/2021 Kidney stones 05/03/2021 Flying phobia 05/03/2021 URBAN (obstructive sleep apnea) 05/03/2021 WINSTON (generalized anxiety disorder) 04/30 documented as of this encounter (statuses as of 11/12/2022) Resolved Problems Problem Noted Date Resolved Date Obesity, Class II, BMI 35-39.9, isolated (see ac tual BMI) 05/03/2021 11/02/2021 documented as of this encounter (statuses as of 11/12/2022) Immunizations Name Administration Dates Next Due COVID-19 mRNA, LNP-s, No Pre serve, 2-Dose Series (Moderna) 08/25/2020,07/28/2020 Covid-19 Mrna, Lnp-s, No Preserve, Booster (Mode rna) 10/01/2021 Pneumococcal Polysaccharide PPV23 (Pneumovax) Seasonal Influenza, Quadriva lent, No Preserve, 6 Mons & Above, IM 07/22/2021 documented as of this encounter Social History Tobacco Use Types Packs/Day Years Used Date Smoking Tobacco: Never Smokeless Tobacco: Current Chew Sex Assigned at Date Recorded Not on file Job Start Date Occupation Industry Not on file Not on file Not on file documented as of this encounter Miscellaneous Notes * Telephone Encounter - Niko Adan RPh - 11/12/2022 9:46 AM EDTSigned Prescriptions: Disp Refills FLUoxetine HCl 40 MG Oral Capsule (PROzac) 180 Ca*0 Sig: TAKE 2 CAPSULES BY MOUTH EVERY MORNINGAuthorizing Provider: LENA JOSEPH User: CHRISTINA ADAN TTHEW * Telephone Encounter - Niko Adan RPh - 11/12/2022 9:44 AM EDT Provided 1 additional refill at this time, patient overdue for OV. To be contacted in 07/28/22 (re-sent high priority). Thanks, Niko Adan Rph, Pharm D. Clinical Pharmacist [facility] Services (Formerly Telepharmacy)/[facility] [phone] 11/12/2022,9:45 AM documented in this encounter Plan of Treatment Health Maintenance Due Date Last Done Comments Hepatitis B (1 of 3 - 3-dose series) 1968 Lipid Panel 1968 Depression Screening, Annual for Pts 12 and Over 1980 HIV Screening 1983 DIABETES-FOOT EXAM 1986 Hepatitis C Screening 1986 DTaP,Tdap,and Td Vaccines (1 - Tdap) 1987 Cologuard 2013 Colonoscopy 2013 Colorectal Cancer Screening 2013 Fecal Occult Blood Test 2013 Sigmoidoscopy 2013 Zoster Vaccines (1 of 2) 2018 *BASELINE EKG FOR HTN 05/13/2021 HbA1c 10/31/2021 05/03/2021, 04/05/2021 COVID-19 Vaccine (4 - Modern a series) 11/26/2021 10/01/2021, 08/25/2020, 07/28/2020 GFR 07/05/2022 07/05/2021, 04/13/2021, 04/13/2021 Albumin/Creatinine Ratio 07/22/2022 07/22/2021 DIABETES-EYE EXAM 07/22/2022 07/22/2021 Pneumococcal Vaccine: Pediatrics (0 to 5 Years) and At-Risk Patients (6 to 64 Years) (2 - PCV) 07/22/2022 07/22/2021 Influenza Vaccine (FLU shot) (#1) 2022 07/22/2021 GARDASIL-HPV IMMUNIZATION SERIES Aged Out No longer eligible b ased on patient's age to complete this topic MENINGOCOCCAL (MENACTRA/MENVEO) Aged Out No longer eligible b ased on patient's age to complete this topic documented as of this encounter Medical Devices Not on filedocumented as of this encounter Care Teams Business Development Coordinator Relationship Specialty Start Date End Date Lena Joseph MD [address] [place] [address] PCP - General Family Medicine 05/03/21 documented as of this encounter
--- OUTSIDE RECORDS SUMMARY | 2023-03-17 21:48 | External Medical Summary | Continuity of Care Document ---
Author Name Unknown Organization [id number] Address [address] [place] [phone] Care Team Providers Care Antenna Engineer Name Role Phone MayraDestinkieran Boateng Primary Care Physician [phone] Encounter [facility] [id number] Date(s): 01/12/23 - 01/12/23 [facility] [address] [facility] [address] [facility] [address] [place] [address] Encounter Diagnosis Right knee pain(Discharge Diagnosis) - 01/12/23 ACL tear(Discharge Diagnosis) - 01/12/23 OA (osteoarthritis) of knee(Discharge Diagnosis) - 01/12/23 Discharge Disposition: Home or Self Care Attending Physician: MD Jose, Jacky A Referring Physician: MD Halle, Abrahan Butler Allergies, Adverse Reactions, Alerts No Known Allergies Assessment and Plan Extracted from: Title:Orthopaedics Office Visit Note Author:Chacha odonnell DO, Ravin Date:01/12/23 1.Right knee pain Patient has re-aggravated knee injury with some instability but at this point discussed that ACL reconstruction would not be recommended at this point given significant arthritis Previous MRI and XR reports reviewed with patient Operative report reviewed from Nov 2020 will have patient wear an ACL functional brace with daily activities and if cleared at work would wear this at work as well instability arising from lack of ACL and medial and lateral meniscus can consider Euflexxa vs Steroid injections in the future if patient fails conservative therapywould consider TKA in the future educated patient on proper use of NSAIDs to help with pain We will consider follow-up at [facility] orcontinuing carewith us Immunizations Given and Recorded Vaccine Date Status [...] Disp# 1 each, for bid testing, Pharmacy: [id number] Start Date: 05/06/22 Status: Ordered Accu-Chek Active Test Strips Start: 05/06/22 17:11:00 EST, See Instructions, Disp# 100 each, Refills: 3, for bid testing, Pharmacy: [id number] Start Date: 05/06/22 Status: Ordered Accu-Chek Softclix (28G) Lancets Start: 05/06/22 17:11:00 EST, See Instructions, Disp# 100 each, Refills: 3, for bid testing, Pharmacy: [id number] Start Date: 05/06/22 Status: Ordered atorvastatin 40 mg oral tablet Start: 04/21/22 15:09:00 EST, 1 tab, PO, Daily, Disp# 90 tab, Refills: 3, Pharmacy: [id number] Start Date: 04/21/22 Stop Date: 04/16/23 Status: Ordered Farxiga 10 mg oral tablet Start: 10/24/22 15:00:00 EDT, See Instructions, Disp# 30 tab, Refills: 2, TAKE 1 TABLET BY MOUTH ONCE DAILY, Pharmacy: [facility] Start Date: 10/24/22 Status: Ordered FLUoxetine 40 mg oral capsule Start: 02/23/22 17:16:00 EDT, See Instructions, Disp# 60 cap, Refills: 0, TAKE 2 CAPSULES BY MOUTH ONCE DAILY, Pharmacy: [facility] Start Date: 02/23/22 Status: Ordered glipiZIDE 5 mg oral tablet, extended release Start: 10/11/22 12:22:00 EDT, See Instructions, Disp# 30 tab, Refills: 5, TAKE 1 TABLET BY MOUTH ONCE DAILY, Pharmacy: [facility] Start Date: 10/11/22 Status: Ordered hydroCHLOROthiazide 25 mg oral tablet Start: 10/18/22 11:33:00 EDT, See Instructions, Disp# 30 tab, Refills: 5, TAKE 1 TABLET BY MOUTH ONCE DAILY, Pharmacy: [facility] Start Date: 10/18/22 Status: Ordered hydrOXYzine hydrochloride 10 mg oral tablet Start: 11/10/22 16:45:00 EDT, See Instructions, Disp# 90 tab, Refills: 2, TAKE 1 TABLET BY MOUTH THREE TIMES DAILY , Pharmacy: [facility] Start Date: 11/10/22 Status: Ordered ibuprofen 600 mg oral tablet Start: 07/22/20 16:46:00 EDT, 1 tab, PO, qid, Disp# 120 tab, Refills: 4, PRN: as needed for pain, Pharmacy: [facility] Start Date: 07/22/20 Status: Ordered olmesartan 20 mg oral tablet Start: 10/18/22 11:33:00 EDT, See Instructions, Disp# 30 tab, Refills: 5, TAKE 1 TABLET BY MOUTH ONCE DAILY, Pharmacy: [facility] Start Date: 10/18/22 Status: Ordered Vascepa 1 g oral capsule Start: 02/23/22 15:08:00 EDT, See Instructions, Disp# 120 cap, Refills: 0, TAKE 2 CAPSULES BY MOUTHTWICE DAILY. take with breakfast and supper to help lower triglycerides. do not break, chew, or open capsules, Pharmacy: [facility] Start Date: 02/23/22 Status: Ordered Mental Status 01/12/23 Barriers to Learning one year None evide nt Mandatory Health Literacy Documentation Yes Health Literacy Communication Barriers N ever Primary Language Ethiopian Problem List Condition Confirmation Course Effective Dates [...] Diagnosis Diagnosis Type Effective Dates Health Status Cl inical Service Informant Right knee pain Discharge Diagnosis 01/12/23 ACL tear Discharge Diagnosis 01/12/23 OA (osteoarthritis) of knee Discharge Diagnosis 01/12/23 Procedures Procedure Date Related Diagnosis Body Site [...] is unchanged since CT of February 22, 2019. This nodule has increased in size since earlier chest CTof June 08, 2008, when the mass [id number]. This represents a slowing growing pulmonary nodule. [...] 12ORIF procedure right ring finger- hardware removed [id number] 14endoscopic sinus surgery Vital Signs Most recent to oldest [Reference Range]: 1 Height 182 cm (01/12/23 8:29 AM) Patient Weight 139 kg (01/12/23 8:29 AM) Body Mass Index 41.96 kg/m2 (01/12/23 8:29 AM) Social History Social History Type Response Smoking Status Never smoked cigaret dia Sex Male Ortho Outpt Note * MD Jose, Jacky A: MODIFY MD Jose, Jacky A: MODIFY, MODIFY, MODIFY, MODIFY, MODIFY, MODIFY, MODIFY, MODIFY Event Display: Ortho Outpt Note Authored Date: Primary Care Provider SAUNDRA Nunez, Jackie Boateng Referring Provider MD Halle, Abrahan Butler Reason for Consultation 2nd opinion on right knee Chief Complaint second opinion R knee History of Present Illness This is a 52-year-old male who is coming in for evaluation for his right knee. He was previously seen at [facility] in the past and coming in for second opinion. He had arthroscopy meniscectomy of his medial and lateral meniscus of the right knee in 2020 he recently had an MRI whichconfirmed severe lateral compartment DJD right knee without new medial or lateral meniscus tearing.Patient has chronic ACL Tear Patient's MRIfrom December 21, 2022 showedanterior cruciatepatient seen,buckling of the PCL,gradeIII-IV chondromalaciaand joint space narrowing. He has had on and off injuries to the right kneeover a number of years to athletic however2 years ago he was hit by his dog who was running at himand knocked him down he had an MRI which showedlateral and medial meniscal tearing and he had surgery in ince then he was feelinggreat walking with no difficulties up untilSeptember 23 at work where his ankle buckledbecause ofa water cover and fell directlyonto hisanterior portion of his knee. Bruising and [facility] He wasout of work up untila few weeks agoand had an MRI at the end of november. He continues to complain of instabilitywhile walking which he previously did not have before this September 23 injurywhen he takesibuprofen 600 mgon a nightly basis. Patient wears a hinged knee brace at work. Physical Exam Vitals & Measurements HT:182cm WT:139kg WT:139.000kg(Dosing) BMI:41.96 Right knee exam: Appearance: No deformities noted Mild effusion no erythema Palpation: Tender to palpationalong thepatellar tendonmedial and lateral joint line, patellar facets lateral and medial Range of motion: Extension 0 [id number] degrees Strength: 5/5 with knee flexion and extension plantar & dorsiflexion Sensation: Intact over L4, L5, and S1 dermatomes Special test: PositiveMcMurray's mildly increased laxity with varus and valgus stress< 1cm of motion at 30 degrees positive Batool's and anterior drawer test negative posterior drawer testnegative dial test @ 30 and 90 degrees Diagnostic Results MRI RIGHT KNEE w/o CONT: post surgical changes, lateral and medial meniscus loss, bone on bone lateral compartment chondromalacia of patella femoral compartment, absent ACL signal change on articular surfaces,PCL, LCL, MCL are intact.MRI evaluated and interpreted by Dr. Garcia Assessment/Plan 1.Right knee pain Patient has re-aggravated knee injury with some instability but at this point discussed that ACL reconstruction would not be recommended at this point given significant arthritis Previous MRI and XR reports reviewed with patient Operative report reviewed from Nov 2020 will have patient wear an ACL functional brace with daily activities and if cleared at work would wear this at work as well instability arising from lack of ACL and medial and lateral meniscus can consider Euflexxa vs Steroid injections in the future if patient fails conservative therapywould consider TKA in the future educated patient on proper use of NSAIDs to help with pain We will consider follow-up at [facility] orcontinuing carewith us Attestation I, Dr. Garcia, saw and examined the patient and discussed the management with the fellow. I reviewedthe fellows note and agree with the documented findings and the plan of care we developed. Problem List/Past Medical History Ongoing Anxiety Diabetes mellitus Family history of breast cancer in mother Hyperlipidemia Hypertension Left breast mass Pain in breast Pneumonia Right knee pain Severe sleep apnea Tobacco user Historical Hematuria Procedure/Surgical History Echocardiogram (05/22/2020)Chest CT (04/09/2020)Extracorporeal Shock Wave Lithotripsy (03/01/2019)CT of abdomen and pelvis (02/22/2019)Colonoscopy (11/23/2018)CT of abdomen and pelvis (11/12/2018)Mammogram (06/06/2018)Repair,arm tendonUmbilical herniaSinusCervical spineArthroscopy of kneeOpen reduction and internal fixation of fractureElbowBilateral inguinal herniaMedial meniscus of knee joint Medications atorvastatin(atorvastatin 40 mg oral tablet), 40 mg= 1 tab, PO, Daily, 3 refills dapagliflozin(Farxiga 10 mg oral tablet), See Instructions diabetes supplies(Accu-Chek Active Glucose Monitor), See Instructions diabetes supplies(Accu-Chek Softclix (28G) Lancets), See Instructions, 3 refills diabetes supplies(Accu-Chek Active Test Strips), See Instructions, 3 refills FLUoxetine(FLUoxetine 40 mg oral capsule), See Instructions glipiZIDE(glipiZIDE 5 mg oral tablet, extended release), See Instructions hydroCHLOROthiazide(hydroCHLOROthiazide 25 mg oral tablet), See Instructions hydrOXYzine(hydrOXYzine hydrochloride 10 mg oral tablet), See Instructions ibuprofen(ibuprofen 600 mg oral tablet), 600 mg= 1 tab, PO, qid, PRN, 4 refills icosapent(Vascepa 1 g oral capsule), See Instructions olmesartan(olmesartan 20 mg oral tablet), See Instructions Allergies NKA Social History Smoking Status Never smoked cigarettes Alcohol Frequency:1-2 times per week Substance Abuse - Denies Substance Abuse Tobacco - Denies Tobacco Use Family History Heart attack: Father. Health Status Family Member(s) Immunizations Vaccine Date Status SARS-CoV-2 (COVID-19) mRNA-1273 vaccine 10/01/2021 Recorded Comments : 2022-05-19: Historical information-source unspecified pneumococcal 23-valent vaccine 07/22/2021 Recorded Comments : 2022-05-19: Historical information-source unspecified SARS-CoV-2 (COVID-19) mRNA-1273 vaccine 08/25/2020 Recorded Comments : 2022-05-19: Historical information-source unspecified SARS-CoV-2 (COVID-19) mRNA-1273 vaccine 07/28/2020 Recorded Comments : 2022-05-19: Historical information-source unspecified tetanus/diphtheria/pertuss, acel (Tdap) 11/24/2019 Recorded Comments : 2022-05-19: Historical information-source unspecified Recommendations Health Maintenance Pending(in the next year) OverDue Adult Influenza Vaccine due10/22/22and every 1year Due Adult COVID-19 Vaccination due01/12/23Unknown Frequency Diabetic Eye Exam due01/12/23Unknown Frequency Hepatitis C Screening due01/12/23One-time only Pneumococcal Vaccine Adults and Adolescents with Chronic Illness due01/12/23One-time only Shingles Vaccine due01/12/23One-time only Due In Future Diabetes Management A1c not due until05/10/23and every 1year Body Mass Index not due until01/12/24and every 1year Satisfied(in the past 1 year) Satisfied Body Mass Index on01/12/23.Satisfied by KIMBER Quiroga Kennie L Diabetes Management A1c on05/10/22.Satisfied by Contributor_system, [email or web address] Lipid Screening on05/10/22.Satisfied by Contributor_system, [email or web address] Electronic Signature on File Electronically Reviewed/Signed by: DO Rocael Madsen Signature Dt/Tm:01/12/2023 09:47 AM Resident Division of Sports Medicine Electronically Reviewed/Signed by: MD Nicci Cavanaughigner Signature Dt/Tm: 01/12/2023 12:52 PM [facility] [employer] District Manager Department of Orthopaedics and Rehabilitation [facility] [address], [place] [address] RP Patient Care team information Care Team Personnel Name: SAUNDRA Nunez Shari A Position: Nurse Pract - Family Med Member Role: Primary Care Provider Address: Address: [address] [place] [address], [place] [address] [place] Care Team Related Persons Name: CORY KRAMER Address: home No Address Provided
--- OUTSIDE RECORDS SUMMARY | 2023-03-17 21:48 | External Medical Summary | Summary of Care ---
Author Name Unknown Organization [facility] Address [address] [place] [address] Phone [phone] Care Team Providers Care Ios Programmer Name Role Phone Lena Joseph MD Primary Care Provider [phone] Reason for Visit * Reason Comments eRx-Medication Refill Encounter Details Date Type Department Care Team Description 07/28/2022 Refill Family Practice [facility] [address] [place] [address] Lena Joseph MD [address] [place] [address] Allergies Active Allergy Reactions Severity Noted Date Comments Meloxicam 05/03/2021 documented as of this encounter (statuses as of 11/18/2022) Medications Medication Sig Dispensed Refills Start Date End Date Status valACYclovir HCl 1 GM Oral Tablet (Valtrex) Start: 10/09/20 9:17:00 EDT, See Instructions, Disp# 4 tab, Refills: 3, 2 tab PO stat with onset of symptoms and repeat 2 tabs po in 12 hours drink plenty of fluids, Pharmacy: [id number] 10/09/2020 Active Losartan Potassium [...] as of this encounter (statuses as of 11/18/2022) Active Problems Problem Noted Date Morbid obesity due to excess calories HTN, goal below 130/80 05/03/2021 Type 2 diabetes mellitus with hemoglobin A1c goal of less than 7.0% 05/03/2021 Kidney stones 05/03/2021 Flying phobia 05/03/2021 URBAN (obstructive sleep apnea) 05/03/2021 WINSTON (generalized anxiety disorder) 04/30 documented as of this encounter (statuses as of 11/18/2022) Resolved Problems Problem Noted Date Resolved Date Obesity, Class II, BMI 35-39.9, isolated (see ac tual BMI) 05/03/2021 11/02/2021 documented as of this encounter (statuses as of 11/18/2022) Immunizations Name Administration Dates Next Due COVID-19 [...] encounter Miscellaneous Notes * Telephone Encounter - Mariah Moffett [facility] - 11/18/2022 12:13 PM EDT Received message from [facility] regarding patient needing appointment. Placed call to patient to advise. Left message on voicemail to call back and schedule appointment. Thanks, Mariah Moffett, PharmD Clinical Pharmacist [facility] [phone] 11/18/2022 12:13 PM * Telephone Encounter - Raul Dow [facility] - 07/29/2022 11:06 AM EDTSigned Prescriptions: Disp Refills FLUoxetine HCl 40 MG Oral Capsule (PROzac) 180 Ca*0 Sig: TAKE 2 CAPSULES BY MOUTH EVERY MORNING Authorizing Provider: LENA JOSEPH Ordering User: RAUL DOW * Telephone Encounter - Raul Dow [facility] - 07/29/2022 11:05 AM EDT Please contact patient so that an appointment can be scheduled with his PRIMARY CARE provider. Refill authorized to hold patient over in the mean time. Last Visit: 07/22/2021 (in office), Visit date not found (telemedicine) Next Visit: Visit date not found Thank You, Raul Dow, Pharm-D Clinical Pharmacist [facility] [phone] 07/29/2022, 11:05 AM documented in this encounter [...] filedocumented as of this encounter Care Teams Ios Programmer Relationship Specialty Start Date End Date Lena Joseph MD [address] [place] [address] PCP - General Family Medicine 05/03/21 documented as of this encounter
--- OUTSIDE RECORDS SUMMARY | 2023-03-17 21:48 | External Medical Summary | Continuity of Care Document ---
Author Name Unknown Organization [address] Address [address] [place] [address] [phone] Care Team Providers Care Return To Service Inspector Name Role Phone Jackie Nunez Primary Care Physician [phone] Encounter [facility] [phone] Date(s): 09/30/22 - 09/30/[address], [address] [phone] Encounter Diagnosis Diabetes mellitus(Discharge Diagnosis) - 09/30/22 Anxiety(Discharge Diagnosis) - 09/30/22 Hyperlipidemia(Discharge Diagnosis) - 09/30/22 Hypertension(Discharge Diagnosis) - 09/30/22 Discharge Disposition: Home or Self Care Attending Physician: SAUNDRA Nunez Shari A Referring Physician: SAUNDRA Nunez Shari A Allergies, Adverse Reactions, Alerts No Known Allergies Assessment and Plan Extracted from: Title:Office Visit Note Author:SAUNDRA Nunez Sh ari A Date:09/30/22 1.Diabetes mellitus Chronic condition,uncontrolled. Goal A1c less than 7%. See HPI. Obtain FLP, A1c, CMP, urine microalbumin. RTC 3 months. 2.Anxiety Chronic condition, stable. Goal control. Continue same. 3.Hyperlipidemia Chronic condition,goal control. Update FLP, continue same. 4.Hypertension Chronic condition, stable,goalblood pressure 120/80, normotensive today, continue same. Time: 35_mins 5- pre-visit chart review 27 - visit, inclusive of history, exam, and discussion of assessment/plan 3 - post-visit documentation/orders/coordination of care Immunizations Given and Recorded Vaccine Date Status [...] Disp# 1 each, for bid testing, Pharmacy: [id number] Start Date: 05/06/22 Status: Ordered Accu-Chek Active Test Strips Start: 05/06/22 17:11:00 EST, See Instructions, Disp# 100 each, Refills: 3, for bid testing, Pharmacy: [facility] Start Date: 05/06/22 Status: Ordered Accu-Chek Softclix (28G) Lancets Start: 05/06/22 17:11:00 EST, See Instructions, Disp# 100 each, Refills: 3, for bid testing, Pharmacy: [facility] Start Date: 05/06/22 Status: Ordered atorvastatin 40 mg oral tablet Start: 04/21/22 15:09:00 EST, 1 tab, PO, Daily, Disp# 90 tab, Refills: 3, Pharmacy: [facility] Start Date: 04/21/22 Stop Date: 04/16/23 Status: Ordered Farxiga 10 mg oral tablet Start: 09/23/22 11:38:00 EDT, See Instructions, Disp# 30 tab, Refills: 0, TAKE 1 TABLET BY MOUTH ONCE DAILY, Pharmacy: [facility] Start Date: 09/23/22 Status: Ordered FLUoxetine 40 mg oral capsule Start: 02/23/22 17:16:00 EDT, See Instructions, Disp# 60 cap, Refills: 0, TAKE 2 CAPSULES BY MOUTH ONCE DAILY, Pharmacy: [facility] Start Date: 02/23/22 Status: Ordered glipiZIDE 5 mg oral tablet, extended release Start: 09/02/22 17:17:00 EDT, See Instructions, Disp# 30 tab, Refills: 0, TAKE 1 TABLET BY MOUTH ONCE DAILY, Pharmacy: [facility] Start Date: 09/02/22 Status: Ordered hydroCHLOROthiazide 25 mg oral tablet Start: 05/03/22 9:38:00 EST, See Instructions, Disp# 30 tab, Refills: 5, TAKE 1 TABLET BY MOUTH ONCE DAILY, Pharmacy: [facility] Start Date: 05/03/22 Status: Ordered hydrOXYzine hydrochloride 10 mg oral tablet Start: 08/08/22 20:48:00 EDT, See Instructions, Disp# 90 tab, Refills: 0, TAKE 1 TABLET BY MOUTH THREE TIMES DAILY , Pharmacy: [facility] Start Date: 08/08/22 Status: Ordered ibuprofen 600 mg oral tablet Start: 07/22/20 16:46:00 EDT, 1 tab, PO, qid, Disp# 120 tab, Refills: 4, PRN: as needed for pain, Pharmacy: [facility] Start Date: 07/22/20 Status: Ordered olmesartan 20 mg oral tablet Start: 05/03/22 9:39:00 EST, See Instructions, Disp# 30 tab, Refills: 5, TAKE 1 TABLET BY MOUTH ONCE DAILY, Pharmacy: [facility] Start Date: 05/03/22 Status: Ordered Vascepa 1 g oral capsule Start: 02/23/22 15:08:00 EDT, See Instructions, Disp# 120 cap, Refills: 0, TAKE 2 CAPSULES BY MOUTHTWICE DAILY. take with breakfast and supper to help lower triglycerides. do not break, chew, or open capsules, Pharmacy: [facility] Start Date: 02/23/22 Status: Ordered Mental Status 09/30/22 Barriers to Learning one year None evide nt Mandatory Health Literacy Documentation Yes Health Literacy Communication Barriers N ever Primary Language Pashto Problem List Condition Confirmation Course Effective Dates Status H ealth Status Informant Hematuria Confirmed Active Left breast mass Confirmed Active Diabetes mellitus Confirmed Active Family history of breast cancer in mother Confirmed Active Anxiety Confirmed Active Hyperlipidemia Confirmed Active Hypertension Confirmed Active Pain in breast Confirmed Active Pneumonia Confirmed Active Severe sleep apnea Confirmed Active Tobacco user Confirmed Active Diagnosis Diagnosis Type Effective Dates Health Status Clinical Service Informant Diabetes mellitus Discharge Diagnosis 09/30/22 Hyperlipidemia Discharge Diagnosis 09/30/22 Anxiety Discharge Diagnosis 09/30/22 Hypertension Discharge Diagnosis 09/30/22 Procedures Procedure Date Related Diagnosis Body Site [...] CTof June 08, 2008, when the mass [id number]. This represents a slowing growing pulmonary nodule. This possible contains fat and therefore may represent hamartoma. However, this nodule is indeterminate and follow-up chest CT in 6 months is recommended. 2. No acute findings within the chest. [...] 12ORIF procedure right ring finger- hardware removed [id number] 14endoscopic sinus surgery Vital Signs Most recent to oldest [Reference Range]: 1 Height 182 cm (09/30/22 8:05 AM) Patient Weight 137.9 kg (09/30/22 8:05 AM) Body Mass Index 41.63 kg/m2 (09/30/22 8:05 AM) Temperature [36.5-37.9 DegC] 36.5 DegC (09/30/22 8:05 AM) Heart Rate 89 bpm (09/30/22 8:05 AM) Blood Pressure 120/82mmHg (09/30/22 8:05 AM) Cuff Pulse Pressure 38 mmHg (09/30/22 8:05 AM) Social History Social History Type Response Smoking Status Never smoked cigaret dia Sex Male [facility] Outpt Note * SAUNDRA Nunez, Jackie Boateng: MODIFY, MODIFY, MODIFY, PERFORM Event Display: [facility] Outpt Note Authored Date: Chief Complaint DM f/u, med check, discuss knee, having problems walking, knee gives out. History of Present Illness 52-year-old male here today for follow-up to diabetes. Denies polyphagia, polydipsia. Voiding every few hours. No further nocturia since starting Farxiga. No side effects. Wears shoes around the house checks feet daily. He is not up-to-date on eye exam, he will schedule. His last A1c was >9%. His glucose has been in the 200 range. Also reports recent right kneeinjury. Seen in ER, occurred at work.Continued pain and difficulty with ambulation. Working with [employer], workman's comp. Using crutches. Has been icing it and elevating it. Anxiety stable on hydroxyzine. Review of Systems Constitutional: No fever, No chills, No fatigue._ Respiratory: No shortness of breath, No cough, No wheezing. _ Cardiovascular: no lightheadedness/presyncope, No chest pain, No palpitations._ Gastrointestinal: No nausea, No vomiting, No diarrhea, No constipation, No heartburn, No abdominal pain._ Musculoskeletal:see HPI Skin: No rash, No pruritus, No breakdown._ Neurologic: No abnormal balance, No numbness, No tingling, No headache._ Physical Exam Vitals & Measurements T:36.5C HR:89(Monitored) BP:120/82 SpO2:96% HT:182cm WT:137.9kg WT:137.900kg(Dosing) BMI:41.63 General: _Alert and oriented, No acute distress HEENT: _ Normocephalic, atraumatic, EOMI, PERRLA+2, TM clear, Nl gross hearing, moist oral mucosa _ Neck: _ Supple, no lymphadenopathy or thyromegaly Cardiovascular: _Normal rate, Regular rhythm, No murmur, No gallop. Normal peripheral perfusion, No edema, Pulses +2 b/l. Respiratory: _Lungs are clear to auscultation, Respirations are non-labored, Breath sounds are equal Gastrointestinal: _Soft, Non-tender, Non-distended, Normal bowel sounds. No hepatosplenomegaly. Musculoskeletal: _Normal range of motion, normal strength.Right knee in brace, using crutch, varus deviation on exam Neurologic: Normal sensory, Normal motor function, CN II-XII grossly intact. Integumentary: _Warm, Dry, Andrew. Psych: Mood-affect congruence. Reports no SI/HI. Speech is of normal pace and content Assessment/Plan 1.Diabetes mellitus Chronic condition,uncontrolled. Goal A1c less than 7%. See HPI. Obtain FLP, A1c, CMP, urinemicroalbumin. RTC 3 months. 2.Anxiety Chronic condition, stable. Goal control. Continue same. 3.Hyperlipidemia Chronic condition,goal control. Update FLP, continue same. 4.Hypertension Chronic condition, stable,goalblood pressure 120/80, normotensive today, continue same. Time: 35_mins 5- pre-visit chart review 27 - visit, inclusive of history, exam, and discussion of assessment/plan 3 - post-visit documentation/orders/coordination of care Problem List/Past Medical History Ongoing Anxiety Diabetes mellitus Family history of breast cancer in mother Hematuria Hyperlipidemia Hypertension Left breast mass Pain in breast Pneumonia Severe sleep apnea Tobacco user Procedure/Surgical History Echocardiogram (05/22/2020)Chest CT (04/09/2020)Extracorporeal Shock [...] the next year) OverDue Adult Influenza Vaccine due10/22/21and every 1year Due Adult COVID-19 Vaccination due09/30/22Unknown Frequency Diabetic Eye Exam due09/30/22Unknown Frequency Hepatitis C Screening due09/30/22One-time only Pneumococcal Vaccine Adults and Adolescents with Chronic Illness due09/30/22One-time only Shingles Vaccine due09/30/22One-time only Due In Future Diabetes Management A1c not due until05/10/23and every 1year Body Mass Index not due until05/19/23and every 1year Satisfied(in the past 1 year) Satisfied Adult COVID-19 Vaccination on10/01/21.Satisfied by KIMBER Faye Angela Body Mass Index on05/19/22.Satisfied by KIMBER Faye Angela Diabetes Management A1c on05/10/22.Satisfied by Contributor_system, [email or web address] Diabetes Nephropathy Management on01/05/22.Satisfied by Contributor_system, [email or web address] Lipid Screening on05/10/22.Satisfied by Contributor_system, [email or web address] Electronic Signature on File Electronically Reviewed/Signed by: SAUNDRA Fajardo Author Signature Dt/Tm:09/30/2022 08:47 AM Department of Family Medicine [facility] Patient Care team information Care Team Personnel Name: SAUNDRA Nunez Shari A Position: Nurse Pract - Family Med Member Role: Primary Care Provider Address: Address: [address] [place] [address] [place] Care Team Related Persons Name: CORY KRAMER Address: home No Address Provided
[2023-03-17] MEDS ORDERED: ASPIRIN CHEW 324 MG PO STA (21:57)
--- NOTE | 2023-03-17 22:00 | Emergency Department Note ---
Impression & Plan Chest pain, Acute pancreatitis ED Provider Note NAME: UNA KRAMER AGE: 52 SEX: M : 1970 ARRIVES VIA: Walk-In INFORMANT: Patient, ED PROVIDER(S): Aquiles Lomeli DO CHIEF COMPLAINT: Chest pain HPI: The patient is a 52-year-old male who has a history of diabetes who presented to the emergency department for an evaluation of chest pain. The patient describes anterior chest pain that he describes as sharp. He states he started having symptoms approximately an hour ago. He denies having any difficulty breathing or lower extremity swelling he states he also has pain across both shoulders. He does not have a history of coronary artery disease. He denies having any recent trauma or coughing. He denies having any fever. ROS: See above HPI for pertinent positives & negatives. A total of 10 systems reviewed and were otherwise negative. PAST MEDICAL HISTORY: See Below PAST SURGICAL HISTORY: See Below FAMILY HISTORY: See Below SOCIAL HISTORY: See Below HOME MEDICATIONS: See Below ALLERGIES: See Below VITALS: See Below PHYSICAL EXAMINATION: GENERAL: Patient is awake alert in no acute distress patient is resting comfortably and showing no signs of anxiety EYES: The conjunctivae are clear. The pupils are round and reactive. EARS, NOSE, MOUTH AND THROAT: The nose is without any evidence of any deformity. NECK: The neck is nontender and supple. RESPIRATORY: Normal respiratory effort is noted there is no evidence of wheezing rhonchi or rales CARDIOVASCULAR: Regular rate and rhythm noted there no murmurs rubs or gallops normal S1 normal S2. GASTROINTESTINAL: The abdomen is soft. Abdomen is nontender. MUSCULOSKELETAL/EXTREMITIES: There is no evidence of gross deformity full range of motion is noted in the hips and shoulders. SKIN: There is no obvious evidence of any rash. There are no petechiae, pallor or cyanosis noted. NEUROLOGIC: Patient is awake alert and oriented x3 MEDICAL DECISION MAKING: The patient is a 52-year-old male who presented to the emergency department for an evaluation of abdominal pain. The patient had epigastric pain. He also had pain in his shoulder. EKG did not show any acute ischemic changes compared to previous. Serial troponin measurements were obtained which were both negative. I discussed the patient's laboratory and radiographic studies with him. His lipase was elevated. CAT scan of the chest abdomen pelvis was also obtained. I discussed the patient's condition with the on-call [facility] hospitalist. The patient was treated with aspirin as well as pain medication in the emergency department. He was reevaluated multiple times. He had continued pain I do feel the patient would be a better candidate for inpatient management at this time. Triage Nursing notes reviewed. Prior medical records reviewed Vital Signs: reviewed and remarkable for no significant abnormalities Differential diagnosis: Cardiac ischemia, aortic dissection, pulmonary embolism, pneumothorax, pneumonia, pericarditis, myocarditis, esophageal rupture, GERD, cholecystitis, pancreatitis, musculoskeletal, as well as other pathologies. ER treatment provided: See below Diagnostics interpreted by me: ECG: EKG was obtained in the emergency department. My interpretation is sinus rhythm at 83 bpm. There is no ectopy. Nonspecific lateral ST segment abnormalities were noted. Inferior Q waves are were noted. This was compared to a tracing from March 12, 2022. No changes were noted. Cardiac Monitoring: An order was placed for continuous cardiac monitoring. The monitor shows a rate of 74 bpm with sinus rhythm. Laboratory studies: As stated above and show below. Imaging studies: See below. Radiographic imaging was reviewed by myself Consultation(s): I discussed this case with Dr. Munson who is on-call for the [facility]. ED COURSE: The patient was placed in observation status at 2200. Patient was placed in observation for chest pain rule out. During the time in observation, the patient was frequently reassessed and received serial troponin measurements. On Final reassessment the patient was found to have negative troponin x 2 but ongoing pain and [facility]. A total observation time of 2 hours. Procedures: none Critical Care: None Past Med/Surg History Medical History Hypokalemia Pre-syncope Intractable back pain Obesity History of COVID-19 04/24/20 @ [facility]--fever, fatigue, loss of taste/smell, body aches--no issues now Kidney stones Osteoarthritis Diverticular disease Hearing deficit Depression Anxiety Hypertension Sleep apnea cpap Hypercholesterolemia no meds Surgical History History of lithotripsy History of colonoscopy History of anesthesia reaction difficulty voiding after a knee sx History of fusion of cervical spine normal ROM History of open reduction and internal fixation (ORIF) procedure right ring finger---hardware removed History of elbow surgery right elbow tendon repair Status post medial meniscal repair right knee History of arthroscopy of right knee History of bilateral inguinal hernia repair History of umbilical hernia repair History of endoscopic sinus surgery Family History Grandfather (Paternal) Family history of diabetes mellitus Cancer Grandmother (Paternal) Family history of diabetes mellitus Cerebral artery occlusion Uncle Cancer Father Hyperlipidemia Other No family history of adverse response to anesthesia Social History Smoking Status: Never smoker Tobacco Type: Smokeless Tobacco (Dip or Chew) Second Hand Exposure: No; Do You Dip or Chew Tobacco: Yes; Hx Alcohol Use: Yes Alcohol type: beer Hx Substance Use: No Preferred Language: Tajik Communication Ability: Effective Biller Required: No Beliefs That Will Affect Care: None Current Living Situation: Spouse Current Living Situation Comment: Lives with and 2 kids Feels Safe at Home: Yes Assistive Devices: None Allergies Allergies Allergy/AdvReac Type Severity Reaction Status Date / Time No Known Allergies Allergy Unknown Verified 03/17/23 22:35 Home Meds Home Medications Medication Instructions Recorded Confirmed fluoxetine 40 mg capsule (Prozac) 80 mg PO QDL 11/24/19 03/17/23 dapagliflozin propanediol 10 mg 10 mg DAILY 03/12/22 03/17/23 tablet (Farxiga) hydrochlorothiazide 25 mg tablet 25 mg DAILY 03/12/22 03/17/23 hydroxyzine HCl 10 mg tablet 10 mg PO Q8H PRN Anxiety 03/12/22 03/17/23 olmesartan 20 mg tablet (Benicar) 20 mg PO DAILY 03/12/22 03/17/23 atorvastatin 40 mg tablet 40 mg PO DAILY 12/06/22 03/17/23 glipizide 5 mg tablet, extended 5 mg PO DAILY 12/06/22 03/17/23 release 24 hr Results & Data (ED) Vital Signs Vital Signs - 24 hr 03/17/23 21:46 03/17/23 21:54 03/17/23 21:58 Temperature 36.8 C Temperature Source Temporal Artery Scan Pulse Rate 86 82 Pulse Rate [Apical] Pulse Rate [Left Apical] Pulse Rhythm [Left Apical] Pulse Strength [Left Apical] Respiratory Rate 16 Respiratory Effort / Characteristics Respiratory Depth Normal Blood Pressure 173/103 H Blood Pressure [Right Arm] Blood Pressure Mean 126 Blood Pressure Mean [Right Arm] Blood Pressure Position [Right Arm] Pulse Oximetry 96 95 Oxygen Delivery Method Room Air Room Air Oxygen Flow Rate Sepsis Recent Fever Within 48 Hours No Sepsis New/Unexplained Change in Mental Status No Sepsis Action Taken by Nursing No Action Required 03/17/23 21:59 03/17/23 21:59 03/17/23 21:59 Temperature Temperature Source Pulse Rate Pulse Rate [Apical] Pulse Rate [Left Apical] 78 Pulse Rhythm [Left Apical] Regular Pulse Strength [Left Apical] Normal Respiratory Rate 16 Respiratory Effort / Characteristics Non-Labored Spontaneous Respiratory Depth Normal Blood Pressure Blood Pressure [Right Arm] 144/84 H Blood Pressure Mean Blood Pressure Mean [Right Arm] 104 Blood Pressure Position [Right Arm] Pulse Oximetry 93 96 Oxygen Delivery Method Room Air Room Air Room Air Oxygen Flow Rate Sepsis Recent Fever Within 48 Hours Sepsis New/Unexplained Change in Mental Status Sepsis Action Taken by Nursing 03/17/23 21:59 03/18/23 00:01 03/18/23 02:03 Temperature Temperature Source Pulse Rate Pulse Rate [Apical] 79 Pulse Rate [Left Apical] 74 69 Pulse Rhythm [Left Apical] Regular Regular Pulse Strength [Left Apical] Normal Normal Respiratory Rate 16 20 20 Respiratory Effort / Characteristics Non-Labored Spontaneous Non-Labored Spontaneous Respiratory Depth Normal Normal Blood Pressure Blood Pressure [Right Arm] 144/84 H 128/76 166/90 H Blood Pressure Mean Blood Pressure Mean [Right Arm] 104 93 115 Blood Pressure Position [Right Arm] Sitting Sitting Pulse Oximetry 96 98 93 Oxygen Delivery Method Room Air Nasal Cannula Room Air Oxygen Flow Rate 2 Sepsis Recent Fever Within 48 Hours Sepsis New/Unexplained Change in Mental Status Sepsis Action Taken by Jail Medications Current Medication List: was personally reviewed by me Laboratory Data Attestation: I reviewed the patient's lab results. 03/17/23 21:58 03/17/23 21:58 Lab Results 03/17/23 03/17/23 03/17/23 Range/Units 21:58 22:45 23:59 WBC 9.63 (4.8-10.8) K/ul RBC 5.09 (4.70-6.10) M/uL Hgb 15.2 (14.0-18.0) g/dl Hct 43.3 (42.0-52.0) % MCV 85.1 (80.0-100.0) fL MCH 29.9 (25.0-34.0) pg MCHC 35.1 (32.0-36.0) g/dL RDW Std Deviation 37.9 (36.4-46.3) fL RDW Coeff of Tushar 12.5 (11.5-14.5) % Plt Count 247 (130-400) K/uL MPV 8.9 L (9.4-12.4) fL Immature Gran % (Auto) 2.9 % Neut % (Auto) 67.0 % Lymph % (Auto) 19.6 % Shelby % (Auto) 7.5 % Eos % (Auto) 2.3 % Baso % (Auto) 0.7 % Neut # (Auto) 6.45 (1.40-6.50) K/uL Lymph # (Auto) 1.89 (1.20-3.40) K/uL Shelby # (Auto) 0.72 H (0.11-0.59) K/uL Eos # (Auto) 0.22 (0.00-0.50) K/uL Baso # (Auto) 0.07 (0.00-0.20) K/uL Immature Gran # (Auto) 0.28 H (0.01-0.20) K/uL PT Cancelled 10.4 INR Cancelled 0.9 APTT Cancelled 26.1 PTT Ratio Cancelled 0.9 Sodium 137 (136-145) mmol/L Potassium 3.7 (3.5-5.1) mmol/L Chloride 99 (98-107) mmol/L Carbon Dioxide 28 (21-32) mmol/L Anion Gap 10 (3-11) BUN 23 (6-23) mg/dl Creatinine 1.06 (0.6-1.4) mg/dl Est Cr Clr Drug Dosing 113.7 ml/min Est GFR ( Amer) 91.8 ml/min Est GFR (Non-Af Amer) 79.2 ml/min BUN/Creatinine Ratio 21.7 H (10-20) Glucose 276 H (70-99(Fasting)) mg/dl Calcium 9.4 (8.6-10.3) mg/dl Total Bilirubin 0.6 (0.2-1.0) mg/dl AST 39 (13-39) U/L ALT 114 H (7-52) U/L Alkaline Phosphatase 84 (34-104) U/L Troponin I High Sens 7.2 6.8 (0-20) pg/ml Total Protein 7.4 (6.0-8.3) gm/dl Albumin 4.3 (3.4-5.0) gm/dl Globulin 3.1 (2.5-4.0) gm/dl Albumin/Globulin Ratio 1.4 (0.9-2) Triglycerides 938 H (0-150) mg/dl Lipase 340 H (11-82) U/L Administered Medications Sodium Chloride (Nss) 500 mls @ 999 mls/hr IV .Q31M ONE Stop: 03/18/23 02:13 Last Admin: 03/18/23 01:47 Dose: 999 mls/hr Documented By: NILSON Discontinued Medications Aspirin (Aspirin Chew 324 Mg) 324 mg PO NOW STA Stop: 03/17/23 21:58 Last Admin: 03/17/23 22:07 Dose: 324 mg Documented By: DILLON Ioversol (Optiray 320 500ml) 119 ml IV ONCE ONE Stop: 03/18/23 01:28 Last Admin: 03/18/23 01:27 Dose: 119 ml Documented By: THIEN Morphine Sulfate (Morphine Sulfate 4 Mg/Ml 1 Ml Carp\Vial) 4 mg IV NOW STA Stop: 03/17/23 23:30 Last Admin: 03/17/23 23:41 Dose: 4 mg Documented By: NILSON Morphine Sulfate (Morphine Sulfate 4 Mg/Ml 1 Ml Carp\Vial) 4 mg IV NOW STA Stop: 03/18/23 01:44 Last Admin: 03/18/23 01:48 Dose: 4 mg Documented By: NILSON Ondansetron HCl (Ondansetron Inj 2 Mg/Ml 2 Ml Vial) 4 mg IV NOW STA Stop: 03/17/23 23:30 Last Admin: 03/17/23 23:41 Dose: 4 mg Documented By: NILSON Pantoprazole Sodium (Pantoprazole 40 Mg Tab) 40 mg PO NOW STA Stop: 03/17/23 23:30 Last Admin: 03/17/23 23:41 Dose: 40 mg Documented By: NILSON Imaging Data Attestation: I personally reviewed and interpreted this imaging study as follows: My Impression: 1 view chest x-ray was obtained in the emergency department. My interpretation is no free air or definite infiltrate, this was compared to a chest x-ray from April 21, 2022. No changes were noted. Final report pending. Radiologist's Impression: Chest CTA 03/18/23 01:09 Exam(s): CTA CHEST IV Amt: 119 ml opti 320 EXAM: CT Angiography Chest With Intravenous Contrast CLINICAL HISTORY: Reason for exam: PE. TECHNIQUE: Axial computed tomographic angiography images of the chest with intravenous contrast. CTDI is 81 mGy and DLP is 2435.26 mGy-cm. Automated exposure control was utilized for the study. A dose lowering technique was utilized adhering to the principles of ALARA. MIP reconstructed images were created and reviewed. COMPARISON: April 09, 2020 FINDINGS: Pulmonary arteries: The pulmonary arterial tree is well opacified with contrast. The distal lower lobe branches are mildly blurred by motion. No pulmonary embolism is identified. Aorta: The thoracic aorta is nondilated. There is no aneurysm or dissection. Lungs: There is vascular congestion without overt edema. There is an trace amount of scattered bibasilar subsegmental atelectasis. No mass. Pleural space: Unremarkable. No significant effusion. No pneumothorax. Heart: The heart is upper normal in size. There is mild to moderate coronary and mitral calcification. No pericardial effusion is seen. No cardiomegaly. No evidence of RV dysfunction. Bones/joints: Mild to moderate degenerative changes throughout the spine. No fracture or bone lesion is identified. No dislocation. Soft tissues: Unremarkable. Lymph nodes: Unremarkable. No enlarged lymph nodes. IMPRESSION: 1. The pulmonary arterial tree is well opacified with contrast. The distal lower lobe branches are mildly blurred by motion. No pulmonary embolism is identified. 2. The thoracic aorta is nondilated. There is no aneurysm or dissection. 3. The heart is upper normal in size. There is mild to moderate coronary and mitral calcification. No pericardial effusion is seen. 4. There is vascular congestion without overt edema. There is an trace amount of scattered bibasilar subsegmental atelectasis. Electronically signed by: Jayy Diaz MD 03/18/23 01:58 AM Discharge Plan Visit Data Chief Complaint: Chest Pain Stated Complaint: CHEST PAIN, SHOULDER PAIN, SOB, ED Provider: Aquiles Lomeli Discharge Problem: Chest pain, Acute pancreatitis Patient Disposition: Being Evaluated by Hospitalist Forms Stand Alone Forms: My [place] Prescriptions Prescriptions: No Action fluoxetine [Prozac] 40 mg capsule 80 mg PO QDL olmesartan [Benicar] 20 mg Tablet 20 mg PO DAILY hydrochlorothiazide 25 mg tablet 25 mg DAILY hydroxyzine HCl 10 mg tablet 10 mg PO Q8H PRN (Reason: Anxiety) Farxiga 10 mg tablet 10 mg DAILY atorvastatin 40 mg tablet 40 mg PO DAILY glipizide 5 mg tablet extended release 24hr 5 mg PO DAILY Referrals Referrals: Jackie Nunez CRNP [Primary Care Provider] - Discharge Problem: Chest pain Qualifiers: Chest pain type: unspecified Qualified Code(s): R07.9 - Chest pain, unspecified Acute pancreatitis Qualifiers: Pancreatitis type: unspecified pancreatitis type Acute pancreatitis complication: unspecified Qualified Code(s): K85.90 - Acute pancreatitis without necrosis or infection, unspecified
[2023-03-17 22:11] LABS: Basophils # (auto) 0.07 K/uL (0.00-0.20); Basophils % (auto) 0.7 %; Eosinophils # (auto) 0.22 K/uL (0.00-0.50); Eosinophils % (auto) 2.3 %; Hematocrit (blood only) 43.3 % (42.0-52.0); Hemoglobin 15.2 g/dl (14.0-18.0); Immature Granulocytes # (auto) 0.28 K/uL (0.01-0.20); Immature Granulocytes % (auto) 2.9 %; Lymphocytes # (auto) 1.89 K/uL (1.20-3.40); Lymphocytes % (auto) 19.6 %; Mean Corpuscular Hemoglobin 29.9 pg (25.0-34.0); Mean Corpuscular Hgb Conc 35.1 g/dL (32.0-36.0); Mean Corpuscular Volume 85.1 fL (80.0-100.0); Mean Platelet Volume 8.9 fL (9.4-12.4); Monocytes # (auto) 0.72 K/uL (0.11-0.59); Monocytes % (auto) 7.5 %; Neutrophils # (auto) 6.45 K/uL (1.40-6.50); Platelet Count 247 K/uL (130-400); RDW Coefficient of Variation 12.5 % (11.5-14.5); RDW Standard Deviation 37.9 fL (36.4-46.3); Red Blood Count 5.09 M/uL (4.70-6.10); White Blood Count 9.63 K/ul (4.8-10.8)
[2023-03-17 22:27] LABS: Albumin Globulin Ratio 1.4 (0.9-2); Albumin Level 4.3 gm/dl (3.4-5.0); BUN Creatinine Ratio 21.7 (10-20); Bilirubin,Total 0.6 mg/dl (0.2-1.0); Calcium 9.4 mg/dl (8.6-10.3); Creatinine Clr Calc Pharmacy 113.7 ml/min; Est GFR (African American) 91.8 ml/min; Est GFR (Non-African American) 79.2 ml/min; Globulin 3.1 gm/dl (2.5-4.0); Potassium 3.7 mmol/L (3.5-5.1); Total Protein 7.4 gm/dl (6.0-8.3)
[2023-03-17 22:33] LABS: Troponin I High Sensitivity 7.2 pg/ml (0-20)
[2023-03-17] MEDS ORDERED: PANTOprazole 40 MG TAB PO STA (23:29)
[2023-03-17] MEDS ORDERED: ONDANSETRON INJ 2 MG/ML 2 ML VIAL IV STA (23:29)
[2023-03-17] MEDS ORDERED: MoRPHine SULFATE 4 MG/ML 1 ML CARP\\VIAL IV STA (23:29)
[2023-03-18 00:51] LABS: INR 0.9 (0.9-1.1); Partial Thromboplastin Ratio 0.9; Partial Thromboplastin Time 26.1 Seconds (21.0-31.0); Prothrombin Time 10.4 Seconds (9.0-12.0)
[2023-03-18] MEDS ORDERED: OPTIRAY 320 500ml IV ONE (01:27)
[2023-03-18] MEDS ORDERED: SODIUM CHLORIDE 0.9% 500 ML IV ONE (01:43)
[2023-03-18] MEDS ORDERED: MoRPHine SULFATE 4 MG/ML 1 ML CARP\\VIAL IV STA (01:43)
--- NOTE | 2023-03-18 01:59 | CT Scan Report ---
Exam(s): CTA CHEST IV Amt: 119 ml opti 320 EXAM: CT Angiography Chest With Intravenous Contrast CLINICAL HISTORY: Reason for exam: PE. TECHNIQUE: Axial computed tomographic angiography images of the chest with intravenous contrast. CTDI is 81 mGy and DLP is 2435.26 mGy-cm. Automated exposure control was utilized for the study. A dose lowering technique was utilized adhering to the principles of ALARA. MIP reconstructed images were created and reviewed. COMPARISON: April 09, 2020 FINDINGS: Pulmonary arteries: The pulmonary arterial tree is well opacified with contrast. The distal lower lobe branches are mildly blurred by motion. No pulmonary embolism is identified. Aorta: The thoracic aorta is nondilated. There is no aneurysm or dissection. Lungs: There is vascular congestion without overt edema. There is an trace amount of scattered bibasilar subsegmental atelectasis. No mass. Pleural space: Unremarkable. No significant effusion. No pneumothorax. Heart: The heart is upper normal in size. There is mild to moderate coronary and mitral calcification. No pericardial effusion is seen. No cardiomegaly. No evidence of RV dysfunction. Bones/joints: Mild to moderate degenerative changes throughout the spine. No fracture or bone lesion is identified. No dislocation. Soft tissues: Unremarkable. Lymph nodes: Unremarkable. No enlarged lymph nodes. IMPRESSION: 1. The pulmonary arterial tree is well opacified with contrast. The distal lower lobe branches are mildly blurred by motion. No pulmonary embolism is identified. 2. The thoracic aorta is nondilated. There is no aneurysm or dissection. 3. The heart is upper normal in size. There is mild to moderate coronary and mitral calcification. No pericardial effusion is seen. 4. There is vascular congestion without overt edema. There is an trace amount of scattered bibasilar subsegmental atelectasis. Electronically signed by: Jayy Diaz MD 03/18/23 01:58 AM
[2023-03-18] MEDS ORDERED: ALUMINUM/MAGNESIUM SUSP 30 ML UDC PO STA (02:07)
[2023-03-18 02:12] LABS: Appearance Urine Clear (Clear); Bilirubin Urine Negative (Negative); Blood Urine Negative (Negative); Color Urine Yellow; Glucose Urine UA 3+ (Negative); Ketones Urine Negative (Negative); Leukocyte Esterase Urine Negative (Negative); Nitrite Urine Negative (Negative); Protein Urine Negative (Negative); Specific Gravity Urine 1.043 (1.000-1.030); Urobilinogen Urine Negative (Negative)
--- NOTE | 2023-03-18 02:33 | CT Scan Report ---
Exam(s): CT ABDOMEN + PELVIS With Contrast IV Amt: 119 ml opti 320 EXAM: CT Abdomen and Pelvis With Intravenous Contrast CLINICAL HISTORY: Reason for exam: chest pain. TECHNIQUE: Axial computed tomography images of the abdomen and pelvis with intravenous contrast. CTDI is 85 mGy and DLP is 2435.26 mGy-cm. Automated exposure control was utilized for the study. A dose lowering technique was utilized adhering to the principles of ALARA. CONTRAST: Patient received 119 ml Optiray 320 of IV contrast COMPARISON: June 13, 2021 FINDINGS: Lung bases: Unremarkable. No mass. No consolidation. Heart: The heart is mildly enlarged with moderate coronary calcification. ABDOMEN: Liver: There is fatty infiltration of the liver and hepatomegaly with the liver measuring 24 cm craniocaudad. No focal liver lesion is seen. Gallbladder and bile ducts: The gallbladder is contracted but otherwise unremarkable. No calcified stones. No ductal dilation. Pancreas: Unremarkable. No mass. No ductal dilation. Spleen: Unremarkable. No splenomegaly. Adrenals: Unremarkable. No mass. Kidneys and ureters: Unremarkable. No solid mass. No hydronephrosis. Stomach and bowel: See below. PELVIS: Appendix: The appendix is normal. Bowel loops are nondilated. There is moderate diverticulosis of the sigmoid colon without evidence of acute diverticulitis. No acute inflammatory changes are seen involving the bowel. Bladder: Unremarkable. No mass. Reproductive: Unremarkable as visualized. ABDOMEN and PELVIS: Intraperitoneal space: Unremarkable. No free air. No significant fluid collection. Bones/joints: Mild degenerative changes in the spine. No fracture or subluxation is seen. Soft tissues: Unremarkable. Vasculature: Unremarkable. No abdominal aortic aneurysm. Lymph nodes: Unremarkable. No enlarged lymph nodes. IMPRESSION: 1. There is fatty infiltration of the liver and hepatomegaly with the liver measuring 24 cm craniocaudad. No focal liver lesion is seen. 2. The appendix is normal. Bowel loops are nondilated. There is moderate diverticulosis of the sigmoid colon without evidence of acute diverticulitis. No acute inflammatory changes are seen involving the bowel. Electronically signed by: Jayy Diaz MD 03/18/23 02:32 AM
[2023-03-18] MEDS: LACTATED RINGER'S 1,000 ML IV SCH ×2 (03:53→10:47)
[2023-03-18] MEDS ORDERED: MoRPHine SULFATE 2 MG/ML CARP IV STA (04:00)
--- NOTE | 2023-03-18 04:01 | History & Physical Report ---
Date of Service March 18, 2023 Assessment & Plan (1) Chest pain: Plan: Patient is a 52-year-old male with past medical history of type 2 diabetes, morbid obesity, panic disorder, hyperlipidemia, hypertension, and essential hypertriglyceridemia who presents to the hospital for evaluation of chest pain. ACS workup has thus far been negative. Patient to be admitted for what appears to be mild acute pancreatitis and continued chest pain rule out. -Admit to [facility] with telemetry, telemetry indication being low risk chest pain -Suspect chest pain is multifactorial given history of anxiety with panic disorder, obesity, and reflux noted in history -Mild acute pancreatitis may also be playing in part. -Treat pancreatitis as below -GI cocktail given in ED without much improvement and pain -Echocardiogram in the morning -EKG with chest pain as needed -A.m. troponin -Recommend stress testing to be done nonurgently to rule out cardiogenic chest pain/ischemia (2) Acute pancreatitis: Plan: - Patient has lipase 3 times upper limit of normal with chest pain that could be argued as pain resulting from pancreatitis meeting 2 of the 3 criteria -Suspect secondary to hypertriglyceridemia with triglycerides at over 900 -Clear liquid diet and advance as tolerated with goal of early refeeding -LR at 150 cc/h based on ideal body weight -Antiemetics/pain control as needed (3) Diabetes: Plan: - Oral medications on hold, switch to basal bolus insulin with sliding scale -A1c in the morning (4) Essential hypertriglyceridemia: Plan: - Suspect cause of acute pancreatitis -Increase atorvastatin from 40 mg to 80 mg daily -Add gemfibrozil 600 mg twice daily -Basal bolus insulin to help with triglyceride reduction while in hospital (5) Cardiomegaly: Plan: - Echocardiogram in the morning (6) Abnormal liver function test: Plan: - Suspect secondary to fatty liver disease as noted on CT of the abdomen (7) Hypertension: Plan: - Continue antihypertensives (8) Hypercholesterolemia: Plan: - Increase statin as above Plan Disposition: Admit to [facility] with telemetry for chest pain rule out DVT prophylaxis: Lovenox Diet: DM 2, low-fat, clears. Advance as tolerated CODE STATUS: Full code History of Present Illness Chief Complaint: Chest Pain Primary Care Provider: SAUNDRA Avelar Patient is a 52-year-old male with past medical history of type 2 diabetes, morbid obesity, panic disorder, hyperlipidemia, hypertension, and essential hypertriglyceridemia who presents to the hospital for evaluation of chest pain. He states that he has had intermittent chest pain for the past few days, however, he did develop worse chest pain that is anterior today after eating some wings for dinner and the pain persisted. This for this reason he came to the emergency department for evaluation. He reports he is also having pain over his shoulders as well. He reports having issues with atypical chest pain for a couple years. Denies any shortness of breath with today's presentation. Patient had a similar episode of chest pain approximately 1 year ago and was admitted for chest pain rule out. He had negative high-sensitivity troponin and unremarkable echocardiogram. In terms of his diabetes, he does report that he only occasionally checks his sugar and feels that they are "normal". He does report polydipsia and unable to quench his thirst over the past few days. Fr equent urination overnight as well. Does report some nausea today that improved with Zofran in the ED. No vomiting. Denies any palpitations. Patient does report that he has lower extremity edema at the end of the day that improves with rest and lying flat overnight. Not dyspneic while lying down. Otherwise no other complaints at this time. ED course:Labs were significant for a normal white blood cell count, elevated blood glucose at 276, ALT of 114, negative high-sensitivity troponin x 2, triglycerides of 938, lipase of 340, 3+ glucose in urine. Chest CTA demonstrating vascular congestion without edema. CT of the abdomen pelvis shows fatty infiltration of the liver and hepatomegaly. There is also diverticulosis. Patient was provided with pain control via morphine, aspirin for the concern of CAD/ACS, normal saline, and GI cocktail. Due to the patient's comorbidities/risk factors, the hospitalist service was consulted for admission for chest pain rule out. Allergies Allergy/AdvReac Type Severity Reaction Status Date / Time No Known Allergies Allergy Unknown Verified 03/17/23 22:35 Home Medications Medication Instructions Recorded Confirmed Type fluoxetine 40 mg capsule (Prozac) 80 mg PO QDL 11/24/19 03/17/23 History dapagliflozin propanediol 10 mg 10 mg DAILY 03/12/22 03/17/23 History tablet (Farxiga) hydrochlorothiazide 25 mg tablet 25 mg DAILY 03/12/22 03/17/23 History hydroxyzine HCl 10 mg tablet 10 mg PO Q8H PRN Anxiety 03/12/22 03/17/23 History olmesartan 20 mg tablet (Benicar) 20 mg PO DAILY 03/12/22 03/17/23 History atorvastatin 40 mg tablet 40 mg PO DAILY 12/06/22 03/17/23 History glipizide 5 mg tablet, extended 5 mg PO DAILY 12/06/22 03/17/23 History release 24 hr fenofibrate 54 mg tablet 54 mg PO DAILY #30 tabs 03/18/23 Rx Past Med/Surg History Medical History Hypokalemia Pre-syncope Intractable back pain Obesity History of COVID-19 04/24/20 @ [facility]--fever, fatigue, loss of taste/smell, body aches--no issues now Kidney stones Osteoarthritis Diverticular disease Hearing deficit Depression Anxiety Hypertension Sleep apnea cpap Hypercholesterolemia no meds Surgical History History of lithotripsy History of colonoscopy History of anesthesia reaction difficulty voiding after a knee sx History of fusion of cervical spine normal ROM History of open reduction and internal fixation (ORIF) procedure right ring finger---hardware removed History of elbow surgery right elbow tendon repair Status post medial meniscal repair right knee History of arthroscopy of right knee History of bilateral inguinal hernia repair History of umbilical hernia repair History of endoscopic sinus surgery Family History Grandfather (Paternal) Family history of diabetes mellitus Cancer Grandmother (Paternal) Family history of diabetes mellitus Cerebral artery occlusion Uncle Cancer Father Hyperlipidemia Other No family history of adverse response to anesthesia Social History Smoking Status: Never smoker Tobacco Type: Smokeless Tobacco (Dip or Chew) Second Hand Exposure: No; Do You Dip or Chew Tobacco: Yes; Hx Alcohol Use: Yes Alcohol type: beer Hx Substance Use: No Preferred Language: [place] Communication Ability: Effective Web Press Roll Tender Required: No Beliefs That Will Affect Care: None Current Living Situation: Spouse Current Living Situation Comment: Lives with and 2 kids Feels Safe at Home: Yes Assistive Devices: None Review of Systems Review of Systems: All systems reviewed & are unremarkable except as noted in HPI & below Physical Exam Constitutional: WD/WN, vitals as above + morbidly obese Eyes: + anicteric sclerae Neck: + thick neck Respiratory: normal respiratory effort, lungs clear to auscultation Cardiovascular: Rate/Rhythm: regular rate and regular rhythm Extremities: + edema Gastrointestinal (Abdomen): normal bowel sounds, soft, nontender, no hepatosplenomegaly Musculoskeletal: Head/Neck/Chest: normocephalic and head atraumatic Skin: no rashes, warm and dry Neurologic: moves all extremities Psychiatric: A+Ox3, euthymic affect Results & Data Results & Data Vital Signs (Past 12 Hours) Vital Signs Temp Pulse Pulse Pulse Resp BP BP 03/18/23 03:50 61 14 159/97 H 03/18/23 03:32 03/18/23 03:00 72 03/18/23 02:51 62 20 169/95 H 03/18/23 02:03 69 20 166/90 H 03/18/23 00:01 74 20 128/76 03/17/23 21:59 79 16 144/84 H 03/17/23 21:59 03/17/23 21:59 78 16 144/84 H 03/17/23 21:59 03/17/23 21:58 03/17/23 21:54 82 03/17/23 21:46 36.8 C 86 16 173/103 H Pulse Ox O2 Del Method O2 Flow Rate 03/18/23 03:50 99 Room Air 2 03/18/23 03:32 84 L 0 03/18/23 03:00 03/18/23 02:51 96 Room Air 03/18/23 02:03 93 Room Air 03/18/23 00:01 98 Nasal Cannula 2 03/17/23 21:59 96 Room Air 03/17/23 21:59 96 Room Air 03/17/23 21:59 93 Room Air 03/17/23 21:59 Room Air 03/17/23 21:58 95 Room Air 03/17/23 21:54 03/17/23 21:46 96 Room Air Supervising Physician Co-Signing Physician Notes Attending addendum: I have physically seen this patient, have supervised the medical residents activities, and agree with the H&P unless as otherwise noted. Assessment and Plan: Chest pain/rule out KS/cardiomegaly/hypertension- Initial troponin 7.2 with follow-up 6.8 The patient will be admitted to telemetry for serial cardiac enzymes, serial EKG's, cardiac rhythm monitoring and a 2-D echocardiogram with Dopplers. Continue hydrochlorothiazide and olmesartan Patient should have a stress echo at some point, if cardiac workup is negative Pancreatitis- May be the majority of the patient's symptoms Lipase 340, follow serially Elevated triglycerides may be a trigger, with baseline triglycerides of 938 IV fluids as noted Diabetes mellitus- Hold oral medications, placed on basal bolus insulin with sliding scale Check hemoglobin A1c Hypertriglyceridemia- Increasing atorvastatin as noted for 40 to 80 mg daily and adding gemfibrozil 600 mg twice daily Needs good blood sugar control as well (1) Chest pain Chest pain type: unspecified Qualified Code(s): R07.9 - Chest pain, unspecified (2) Acute pancreatitis Acute pancreatitis complication: unspecified Pancreatitis type: unspecified pancreatitis type Qualified Code(s): K85.90 - Acute pancreatitis without necrosis or infection, unspecified
[2023-03-18] MEDS ORDERED: CARBOHYDRATES FOR HYPOGLYCEMIA PO PRN (05:21)
[2023-03-18] MEDS ORDERED: GLUCOSE 40% GEL 15 GM TUBE PO PRN (05:21)
[2023-03-18] MEDS ORDERED: GLUCOSE 10 TAB/TUBE PO PRN (05:21)
[2023-03-18] MEDS ORDERED: hydrOXYzine HCl 10 MG TAB PO PRN (05:21)
[2023-03-18] MEDS ORDERED: MoRPHine SULFATE 2 MG/ML CARP IV PRN (05:21)
[2023-03-18] MEDS ORDERED: GLUCAGON FOR INJ 1 MG VIAL SQ PRN (05:21)
[2023-03-18] MEDS ORDERED: ACETAMINOPHEN 325 MG TAB PO PRN (05:21)
[2023-03-18] MEDS ORDERED: ONDANSETRON INJ 2 MG/ML 2 ML VIAL IV PRN (05:21)
[2023-03-18] MEDS ORDERED: MoRPHine SULFATE 4 MG/ML 1 ML CARP\\VIAL IV PRN (05:21)
[2023-03-18] MEDS ORDERED: DEXTROSE 50% 50 ML SYRINGE IV PRN (05:21)
[2023-03-18] MEDS ORDERED: ENOXAPARIN INJ 40 MG/0.4 ML SYR SQ SCH (07:00)
--- NOTE | 2023-03-18 07:46 | XRay Report ---
XR chest 1V portable HISTORY: Chest pain, nonspecific COMPARISON: Chest 04/21/2022. FINDINGS: Low lung volumes. No pneumothorax. No pleural effusions. The cardiac silhouette remains enl arged. There is mild central pulmonary vascular congestion without overt edema. No new focal lung con solidations to suggest a pneumonia. Cervical spinal fusion hardware is noted. IMPRESSION: Cardiomegaly and mild congestive change. ACT 112: Negative or not required by law. Electronically signed by: Herber Paz M.D. 03/18/2023 7:44 AM
--- NOTE | 2023-03-18 08:09 | Hospitalist Progress Note ---
Date of Service March 18, 2023 Assessment & Plan (1) Chest pain: Plan: Patient is a 52-year-old male with past medical history of type 2 diabetes, morbid obesity, panic disorder, hyperlipidemia, hypertension, and essential hypertriglyceridemia who presents to the hospital for evaluation of chest pain. -Suspect chest pain is noncardiac and potentially multifactorial given history of anxiety with panic disorder, obesity, and reflux noted in history -GI cocktail given in ED, today his symptoms have resolved and he feels well - EKG wnl, echo unremarkable, trop wnl -Recommend stress testing to be done nonurgently to rule out cardiogenic chest pain/ischemia given pt is obese with uncontrolled hyperlipidemia and diabetes - presume that the chest pain was most likely related to GERD at this point (2) Elevated lipase: Plan: - Patient has lipase 3 times upper limit of normal on admission and elevated triglycerides, however suspect pancreatitis unlikely as pt's symptoms have totally resolved with 150 mL/hr LR and GI cocktail - will advance to low fat diet today - lipase is trending down - pt should be seen outpatient for further evaluation of lipase, may warrant outpatient MRCP -Antiemetics/pain control as needed (3) Diabetes: Plan: - Oral medications on hold, switch to basal bolus insulin with sliding scale -A1c; 9.9 (4) Essential hypertriglyceridemia: Plan: - Suspect cause of acute pancreatitis -Increase atorvastatin from 40 mg to 80 mg daily -Add gemfibrozil 600 mg twice daily -Basal bolus insulin to help with triglyceride reduction while in hospital (5) Cardiomegaly: Plan: - Echocardiogram; unremarkable (6) Abnormal liver function test: Plan: - Suspect secondary to fatty liver disease as noted on CT of the abdomen (7) Hypertension: Plan: - Continue antihypertensives (8) Hypercholesterolemia: Plan: - Increase statin as above Plan Disposition: Admit to [facility] with telemetry for chest pain rule out DVT prophylaxis: Lovenox Diet: DM 2, low-fat, clears. Advance as tolerated Admission and Anticipated Discharge Date Admission Date: March 18, 2023 Subjective Patient is a 52-year-old male with past medical history of type 2 diabetes, morbid obesity, panic disorder, hyperlipidemia, hypertension, and essential hypertriglyceridemia who presents to the hospital for evaluation of chest pain. Today, pt states he is feeling fine. He tolerated clear liquids this morning without any nausea or vomiting. His chest pain has resolved. No questions or complaints at this time. Review of Systems Review of Systems: Per HPI. Physical Exam Physical Exam: General:Alert and oriented, no acute distress, HEENT: Normocephalic, moist oral mucosa, Cardio: Regular rate and rhythm, no murmur, Resp:Lungs clear to auscultation b/l, no wheezes or rhonchi, GI: Soft and nontender, bowel sounds active Skin: Warm, pink, dry, Psych: Mood-affect congruence. Results & Data Results & Data Vital Signs (Past 12 Hours) Vital Signs Temp Pulse Pulse Pulse Resp BP BP 03/18/23 07:03 55 L 16 143/83 H 03/18/23 06:55 64 03/18/23 05:00 61 18 178/103 H 03/18/23 03:50 61 14 159/97 H 03/18/23 03:32 03/18/23 03:00 72 03/18/23 02:51 62 20 169/95 H 03/18/23 02:03 69 20 166/90 H 03/18/23 00:01 74 20 128/76 03/17/23 21:59 79 16 144/84 H 03/17/23 21:59 03/17/23 21:59 78 16 144/84 H 03/17/23 21:59 03/17/23 21:58 03/17/23 21:54 82 03/17/23 21:46 36.8 C 86 16 173/103 H Pulse Ox O2 Del Method O2 Flow Rate 03/18/23 07:03 91 Room Air, Nasal Cannula 2 03/18/23 06:55 03/18/23 05:00 98 Nasal Cannula 2 03/18/23 03:50 99 Room Air 2 03/18/23 03:32 84 L 0 03/18/23 03:00 03/18/23 02:51 96 Room Air 03/18/23 02:03 93 Room Air 03/18/23 00:01 98 Nasal Cannula 2 03/17/23 21:59 96 Room Air 03/17/23 21:59 96 Room Air 03/17/23 21:59 93 Room Air 03/17/23 21:59 Room Air 03/17/23 21:58 95 Room Air 03/17/23 21:54 03/17/23 21:46 96 Room Air Resident Activity Tracking Resident Involvement: Resident Care Provided Care Provided: Adult Hospital Medicine (1) Chest pain Chest pain type: unspecified Qualified Code(s): R07.9 - Chest pain, unspecified
--- NOTE | 2023-03-18 08:25 | Electrocardiogram Report ---
Test Reason : Blood Pressure : / mmHG Vent. Rate : 083 BPM Atrial Rate : 083 BPM P-R Int : 144 ms QRS Dur : 092 ms QT Int : 384 ms P-R-T Axes : 023 056 010 degrees QTc Int : 451 ms Normal sinus rhythm Normal ECG When compared with ECG of 12-MAR-2022 05:56, No significant change Confirmed by Branden Hernandez ([id number]) on 03/18/2023 8:25:32 AM Referred By: REFERRED SELF Confirmed By:Branden Hernandez
[2023-03-18] MEDS ORDERED: LOSARTAN POTASSIUM 50 MG TAB PO SCH (09:00)
[2023-03-18] MEDS ORDERED: ATORVASTATIN 40 MG TAB PO SCH (09:00)
[2023-03-18] MEDS ORDERED: hydroCHLOROthiazide 25 MG TAB PO SCH (09:00)
[2023-03-18] MEDS ORDERED: gemfibroziL 600 MG TAB PO SCH (09:00)
[2023-03-18] MEDS ORDERED: LANTUS PER UNIT CHARGE SQ SCH (09:00)
[2023-03-18] MEDS: INSULIN ASPART PER UNIT CHARGE SC SCH ×2 (09:04→12:47)
[2023-03-18 10:43] LABS: Estimated Average Glucose 237 mg/dl; Hemoglobin A1C 9.9 % (4.5-5.6)
[2023-03-18] MEDS: FLUoxetine HCL 20 MG CAP PO SCH ×2 (11:27→11:29)
--- NOTE | 2023-03-18 12:08 | XCELERA ---
[id number]
--- NOTE | 2023-03-18 15:10 | Discharge Summary ---
Date of Service March 18, 2023 Admission HPI Per Admitting Provider Patient is a 52-year-old male with past medical history of type 2 diabetes, morbid obesity, panic disorder, hyperlipidemia, hypertension, and essential hypertriglyceridemia who presents to the hospital for evaluation of chest pain. He states that he has had intermittent chest pain for the past few days, however, he did develop worse chest pain that is anterior today after eating some wings for dinner and the pain persisted. This for this reason he came to the emergency department for evaluation. He reports he is also having pain over his shoulders as well. He reports having issues with atypical chest pain for a couple years. Denies any shortness of breath with today's presentation. Patient had a similar episode of chest pain approximately 1 year ago and was admitted for chest pain rule out. He had negative high-sensitivity troponin and unremarkable echocardiogram. In terms of his diabetes, he does report that he only occasionally checks his sugar and feels that they are "normal". He does report polydipsia and unable to quench his thirst over the past few days. Frequent urination overnight as well. Does report some nausea today that improved with Zofran in the ED. No vomiting. Denies any palpitations. Patient does report that he has lower extremity edema at the end of the day that improves with rest and lying flat overnight. Not dyspneic while lying down. Otherwise no other complaints at this time. ED course:Labs were significant for a normal white blood cell count, elevated blood glucose at 276, ALT of 114, negative high-sensitivity troponin x 2, triglycerides of 938, lipase of 340, 3+ glucose in urine. Chest CTA demonstrating vascular congestion without edema. CT of the abdomen pelvis shows fatty infiltration of the liver and hepatomegaly. There is also diverticulosis. Patient was provided with pain control via morphine, aspirin for the concern of CAD/ACS, normal saline, and GI cocktail. Due to the patient's comorbidities/risk factors, the hospitalist service was consulted for admission for chest pain rule out. Principal Diagnosis Chest painlikely rib related Discharge Exam In general he is awake and alert pleasant no distress. HEENT normocephalic atraumatic mucous membranes moist. Breathing unlabored no accessory muscle use good effort. Skin shows no rashes no pallor or icterus. Abdomen with mild epigastric tenderness but no guarding rebound or rigidity, degree of tenderness is extremely mild compared to what would be expected for pancreatitis. I am not able to reproduce rib pain on palpation. He has bilateral palpatory tenderness and abduction weakness consistent with supraspinatus strain. No focal neurodeficits skin without rashes pallor or icterus. Discharge Data Allergies Allergy/AdvReac Type Severity Reaction Status Date / Time No Known Allergies Allergy Unknown Verified 03/17/23 22:35 Consultations 03/18/23 02:00 ED Decision to Admit Stat 03/18/23 14:37 Consult LARISAG opal polisher Routine Ordered Studies 03/18/23 01:09 CT abd pelvis IV con only Stat CT angio chest PE protocol Stat Hospital Course (1) Chest pain: Seems most likely to be rib related (Differentials ruled out: ACStroponins negative, echo unchanged from previousACS exceedingly unlikely by atypical symptoms as well. Given that he is very high risk, we have asked to get him set up for a stress echo next week. PECT angio negative. Other lung pathologyCT chest negative. Pancreatitis initially entertained, but his symptom complex really does not fit with pancreatitis, and I suspect his lipase is either a purely false elevation, or possibly a chronic elevation either related to his dys-metabolism, or less likely some sort of underlying pancreatic structural pathology) --Seems most consistent with rib relatedsafe/stable for home, taught deep breath and stretching exercises Elevated lipasewould recheck in 2-3 weeks, if persistently elevated, possibly pancreatic and/or MRCP MRI imaging, although as above noted I wonder if it is persistently up from his dys-metabolism Right heart strain on echoconcern for undiagnosed sleep apneaoutpatient sleep study Uncontrolled type 2 diabetesextensive discussions/instructionssee discharge instructions, educated on "why to care" (high sugars clog arteries) and lifestyle changes to improve on sugar control Dyslipidemialifestyle change, fenofibrate (small but real risk of increased myalgias with statin notedbut risks definitely outweighed by the benefits given his current triglycerides are almost 1000), outpatient PCP follow-up Nonalcoholic steatohepatitisconcerning given his dysmetabolism for small but real risk of progression to cirrhosistherapeutic lifestyle change Safe/stable for home, otherwise please see discharge instructions. Would request close and frequent follow-up with PCP to help him follow through with therapeutic lifestyle change Total Time Total Time Spent Total Time Spent (In Minutes): <30 Discharge Plan Discharge Items Patient Disposition: Home - Self-Care Reason For Visit: CHEST PAIN Discharge Diagnosis: chest pain - see below Activity: Resume your previous activity Non-emergency contact: Primary Care Provider Call non-emergency contact if: you have any medication questions and your symptoms worsen Follow-up/Referrals: Jackie Nunez CRNP [Primary Care Provider] - Diet: Regular Addtl Attending Provider Instructions: Chest pain -While we were concerned about very serious causes of pain whenever you came in, fortunately the "bad and scary" diagnoses appear to have been ruled out Heart attack: Fortunately this does not at all look consistent with a heart attack, your troponin levels (a lab test that is a very sensitive marker for strain or damage of your heart) were completely normal, and your echocardiogram looks the same as last year (which was essentially normal with the minor abnormality of some elevated pressures on the right side of your heartraising the question of probably some degree of sleep apnea that has not yet been diagnosed) Blood clots: The CAT scan of your chest did not show any evidence of blood clots (nor did it show any evidence of pneumonia, collapsed lung, etc.) Pancreatitis: Initially at admission they were worried that you might of pancreatitis because of an elevation of a lab test called lipase; at the same time your clinical picture really does not fit with what we normally see with pancreatitis, and your pancreas does not at all look inflamed or swollen on CT scan. My suspicion is that the lipase elevation is probably chronicand may relate to your high triglycerides/high sugar levels (see below) --- The pain appears that it was probably rib relatedas we discussed, intercostal muscles are flat, strap like muscles that usually do not require a whole lot of reason to go into spasm. If it is bothering you ongoing, the easiest way to stretch rib muscles is to take a deep breath, stretch out your arms really wide, and hold your breath allowing that to stretch the rib muscles. It may hurt a good bit while you are stretching it, but that should help get things looser. Uncontrolled type 2 diabetes -Your A1c reading is 9.9%. The main reason that we worry about type 2 diabetes is that "high sugars clog arteries"basically the higher sugars run in the longer they run high the more we are knocking off blood vessels we cannot get back. -Generally speaking high sugars clogging arteries starts with an A1c of 7% or higherand obviously the higher people are typically the more they are clogging arteries -The good news is that we are identifying this before you have reached what we call a "vascular endpoint" i.e. there is still plenty of time to change before you have killed off heart muscle or brain tissue or otherwise irreparably clogged arteries -Typically what we see is that type 2 diabetes is largely brought on by simple/starchy/bradycardia/sugary carbohydrates in her dietwhen we eat those types of foods we spike a high sugar, when we spike a sugar our pancreas has to make a big surge of insulin to get the sugar out of our bloodstream and in our musclesand when we repeatedly expose our muscles to high sugar/high insulin levels, our muscles tend to "get addicted" and want more and more insulin over time. Eventually our pancreas is making as much insulin as it possibly can, but are muscles want more than what the pancreas can keep up withthis is when sugars start to get higher and higher. -Fortunately this is almost always a highly reversible, if not completely reversible process -If we start to get away from the simple carbohydrates, it becomes much easier to range in the sugar control -A nice trick is to check your sugar about 2 hours after eating, this will "grade your work" as far as showing how your body responded to the food. Since an A1c of 7 or higher correlates with high sugars clogging arteries, it reasonably correlates to "any given moment blood sugar" of 160 or higher clogging arteries as wellto that end, when you are eating, pay attention especially to foods that spike your sugar higher than this, and right now while your metabolism is very out of control, you might find that any food spikes your sugar higher than this, but pay particular attention to the foods that spike at the highest. As you start to avoid these foods (and exercise moresee below), you can really start to rain in your metabolism in a hurry. -Essentially what you want to work towards is a Mediterranean diet, plant-based diet, low glycemic index dietany of those more or less put you in the same directionwhich is a diet heavy in fruits and vegetables, protein from lean sources, and minimal on bratty/starchy/sugary carbohydrates and minimal unsaturated fats. -20-30 minutes of light cardiovascular exercise (essentially anything that gets your heart rate up and gets your breathing up) also helps make you less diabetic over time. It not only taylor sugar in the moment, but makes your muscles less insulin resistant (more insulin sensitive) in a way that has a lasting impact the more often and the more regularly you exercise. To that end, "perfect" would be doing something for half an hour every day. [employer] that is the goal, and then give yourself the Marybeth to know that you will not be perfect. Remember that doing something is better than doing nothing, and doing more is better than doing less. -Have your PCP check an A1c in 3 monthsif it is not dramatically improved, the first 10 things you should ask yourself essentially boil down to "where am I missing simple carbohydrates that I was not paying attention to" and "am I doing as much as I realistically could be with improving exercise" (I am aware that is only 2 questions, but generally that is where the answer is). It is actually quite realistic with major changes to expect an A1c to be perfect and as little as 3 months time -If we do not make positive lifestyle changes, insulin resistance generally worsens over time, and so diabetes is never "static" it is either getting better (people are making positive changes and becoming less diabetic), or getting worse (people are staying the same with their lifestyle but there are insulin resistance ("how diabetic they are" worsens and they require more medication for the same degree of sugar control)) -this is almost always fixable, and you haven't crossed any point of no return!! High cholesterol/dyslipidemia -This is basically an echo of the same discussion for the uncontrolled type 2 diabetesespecially given that your lipid profile shows high triglycerides and low HDLwhile being on the atorvastatin (and potentially increasing it to 80 mg) is helpful for now, your lipid panel should largely miror your sugar control. The only major change from the above as it relates to your lipids is avoiding carbohydrates will improve your sugar, lower your triglycerides, and probably raise your HDLbut will not have any real impact on your total cholesterol or LDLthat we will be more related to saturated fats and cardiovascular exercise. -We did add a medicinefenofibrate once a dayto lower your triglycerides more to get you out of immediate risk. Usually it "plays well" with Lipitor, although there is a slight increased risk of muscle aches taking both togethershould you feel "like you have the flu" but not have the fluthat would be what people usually feel like if they get this type of side effectsbut again it is quite rare. Your PCP will continue to follow regular labs for this as well. What we want to avoid here are irreversible "vascular endpoints"sadly all the time in my line of work I see people who have had metabolic disarray like yours, and they finally decide to make a change once they have had their first heart attack or stroke, or other first vascular disease manifestations. Similarly while you are fatty liver is only mildly inflamed, it is the kind of situation that can progress to irreversible cirrhosis if unchecked over the next decade or so. Unfortunately we cannot give back heart muscle, brain tissue, etc., and we really cannot unclog clogged arteriesso what is great about meeting you right now is that you do not appear to have crossed a 'point of no return"meaning that you should be able to dodge all of the badness that we are worried about. Shoulder pain: This appears to be totally unrelated to everything that was going on, and it seems that you have strained your supraspinatus muscle, the upper muscle of your rotator cuff, on the right side worse than the left. Given that there was not really any clear inciting incident (as we discussed, oddly enough my left supraspinatus muscle is bothering me today for no reason to!), simply doing nothing but watching it for the next week is quite reasonable, or utilizing topical diclofenac (Voltaren gel) 34 times a day (as we discussed it usually does not work well dose by dosebut rather it works pretty nicely once people are using it 34 times a day for at least 2-3 days) could help settle things down. If it continues to bother you, then a more formal assessment plus or minus a steroid injection could be neededbut this is not likely to be the case. To do: -Follow-up with your PCP next week -Follow-up with the stress test once we get it scheduled (I expect it to be negative, but it will be good reassurance given that we are going to try to get you doing regular cardiovascular exercise) -Check your sugar 2 hours after you eat and learn from it. Totally normal would be 70-120 two hours after eating, reasonable is less than 160. Right now it may take a while of lifestyle improvement to even get to reasonablebut learn from which foods spike your sugar the highest and avoid them. -Have a repeat lipase level checked in 2-3 weeks -Start to build in light, regular cardiovascular exercisewith an eventual goal of 30 minutes every day -Start to shift your diet from your current eating habits towards a Mediterranean type of dietpick the easiest change to make now, and probably make 1 major change a month and have it stick -Have repeat A1c and lipid panel in about 3 months (along with a complete metabolic panel (CMP)) -have your PCP set up a sleep study to screen for sleep apnea Pending Studies at Discharge: No Stand-Alone Forms: My [facility] [employer], Smoking Cessation Medications and DC Order Prescriptions: New fenofibrate 54 mg tablet 54 mg PO DAILY Qty: 30 0RF Continued fluoxetine [Prozac] 40 mg capsule 80 mg PO QDL olmesartan [Benicar] 20 mg Tablet 20 mg PO DAILY hydrochlorothiazide 25 mg tablet 25 mg DAILY hydroxyzine HCl 10 mg tablet 10 mg PO Q8H PRN (Reason: Anxiety) Farxiga 10 mg tablet 10 mg DAILY atorvastatin 40 mg tablet 40 mg PO DAILY glipizide 5 mg tablet extended release 24hr 5 mg PO DAILY Discharge Orders: Discharge Order (Routine); Ordered 03/18/23 Ordered By: Micah Kyle Admission Data Admit Date/Time: 03/18/23 03:50 Attending Provider: Micah Kyle Admit Provider: Tucker Fulton Primary Care Provider: Jackie Nunez Other Providers: Kel Munson Coding Level of Care Code 76990 IN/OBS DISCH 30 MIN/LESS Diagnoses Chest pain R07.9 Chest pain type: unspecified
--- NOTE | 2023-03-19 05:59 | Billing Data ---
Date of Service March 19, 2023 Coding Level of Care Code 01229 INT INP/OBS CARE
== END 2023-03-18 17:46 | disposition home or self-care (01) ==
LOC: ED 21:44 → EDINP 21:44 → SUATTDRO 03-18 03:50 → 2N 03-18 14:00